=== PATIENT | female | born 1960 | race American Indian/Alaskan Native ===

== ENCOUNTER 2017-08-16 10:33 | Inpatient (IN) | payer BC ==
[2017-08-12 15:12] VITALS: BMI 22.1
[2017-08-16] MEDS ORDERED: Iohexol 240 (50 ml) ONE ×2 (12:58→14:58)
[2017-08-16] MEDS ORDERED: Lidocaine 2% Jelly (Uro-Jet) ONE (12:58)
[2017-08-16] MEDS ORDERED: cefTRIAXone (Rocephin) 1 gm Inj ONE (12:58)
[2017-08-16] MEDS ORDERED: Propofol 10 mg/ml Inj (20 ML) ONE (14:05)
[2017-08-16] MEDS ORDERED: Midazolam 2 MG/2 ML VIAL ONE (14:06)
[2017-08-16] MEDS ORDERED: Lidocaine 2% Inj (20ml) ONE (14:07)
[2017-08-16] MEDS ORDERED: Gentamicin 80 mg/2mL Inj. ONE (15:05)
[2017-08-16] MEDS ORDERED: Morphine 4 mg/ml ISec IVP PRN (15:26)
[2017-08-16] MEDS ORDERED: Lactated Ringer's 1,000 ML IV SCH (15:30)
[2017-08-16] MEDS ORDERED: Morphine 4 mg/ml ISec ONE ×2 (16:09→16:26)
[2017-08-16] MEDS ORDERED: Morphine 4 mg/ml ISec IVP ONE ×3 (16:15→16:44)
[2017-08-16] MEDS ORDERED: Oxycodone/Acetaminophen 5/325 mg Tab ONE (16:47)
[2017-08-16] MEDS ORDERED: Oxycodone/Acetaminophen 5/325 mg Tab PO ONE (16:51)
--- NOTE | 2017-08-16 18:11 | RAD ---
PROCEDURE: Fluoroscopy up to 1 hr. HISTORY: LASER LITHOTRIPSY / STENT INSERTION (LEFT) COMPARISON: None TECHNIQUE: Standard protocol for this study/examination. FINDINGS: Total fluoroscopic time (continuous mode) utilized during the procedure 380.5 (seconds). Total exam DLP: (mGy) 3.24 IMPRESSION: Less than 1 hr fluoroscopic time utilized during performance of the procedure.
[2017-08-16 18:27] LABS: HEMOGLOBIN 11.9 g/dL (12.0-16.0); MEAN CELL VOLUME 86.7 fl (80.0-105.0); MEAN CORPUSCULAR HEMOGLOBIN 28.9 pg (25.0-35.0); MEAN CORPUSCULAR HGB CONC 33.3 g/dl (31.0-37.0); MEAN PLATELET VOLUME 9.8 fl (7.0-11.0); RBC 4.12 10^6/uL (3.5-6.1); RED CELL DISTRIBUTION WIDTH 13.7 % (11.5-14.5); WHITE BLOOD COUNT 12.1 10^3/ul (4.5-11.0)
[2017-08-16 18:30] LABS: ALB/GLOB RATIO 1.4 (1.1-1.8); ALBUMIN 4.1 g/dL (3.0-4.8); ALT/SGPT 28 U/L (7-56); AST/SGOT 27 U/L (14-36); BLOOD UREA NITROGEN 13 mg/dL (7-21); CALCIUM 8.7 mg/dL (8.4-10.5); GFR AFRICAN-AMERICAN > 60; GFR NON-AFRICAN AMERICAN > 60
--- NOTE | 2017-08-16 18:34 | CP.PCM.CON ---
<Ramya Hayes - Last Filed: 08/16/17 19:40> History of Present Illness - History of Present Illness History of Present Illness: PGY-[address] Elias Medical Consult: weakness, vomiting Ms Kumar, 57 F with PMHx HTN/HLD, R breast cancer in remission, comes in for elective surgery with Dr. Sanchez due to L hydronephrosis due to a very large calculus at mid left ureter with chronic obstruction. Today she underwent ureteroscopy with holmium laser lithrotripsy and cystoscopy with pigtail stent L. In PACU, pt ate muffin and drank 1 cup of coffee. She was seen ambulating in PACU and going to bathroom twice. RN found pt kneeling on the floor with clunched fists on her chest. Pt was assisted to the stretcher. Pt did not lose consciousness. Pt felt generalized weakness due to the pain and she had to gesture with clunched fists for the severe pain in L side of her back. Rapid response was called at 17:40 for clunched fists to r/o seizure ROS: (+) nausea/vomit (+) pain urination (+) frequency in urination, (+) L back pain Denies CARD, dizziness, CP, SOB, abdominal pain, constipation, diarrhea, joint pain PMH: HTN/HLD, anxiety, R breast cancer 2016 s/p R mastectomy/radiation/chemo, gout PSH: port-a-cath; mastectomy SH: Denies drink/smoke/drug All: NKDA Med: called [facility] pharm to confirm. See JUN PMD: No Outpatient oncologist: Dr Mary Past Patient History - Past Social History Smoking Status: Never Smoked - CARDIAC Hx Pacemaker: No - NEUROLOGICAL Hx Paralysis: No - HEMATOLOGICAL/ONCOLOGICAL Hx Blood Transfusions: No - MUSCULOSKELETAL/RHEUMATOLOGICAL Hx Musculoskeletal Disorders: No - PSYCHIATRIC Hx Emotional Abuse: No Hx Physical Abuse: No Hx Substance Use: No - SURGICAL HISTORY Hx Surgeries: Yes - ANESTHESIA Hx Anesthesia Reactions: No Hx Malignant Hyperthermia: No Meds Allergies/Adverse Reactions: Allergies Allergy/AdvReac Type Severity Reaction Status Date / Time No Known Allergies Allergy Verified 07/24/15 08:52 - Medications Medications: Current Medications Alprazolam (Xanax) 0.25 mg PO BID [facility] PRN Reason: Protocol Stop: 08/23/17 18:31 Amlodipine Besylate (Norvasc) 5 mg PO QAM [facility] [place] Levofloxacin/Dextrose (Levaquin 500mg) 500 mg in 100 mls @ 100 mls/hr IVPB DAILY [facility] PRN Reason: Protocol Stop: 08/22/17 10:01 Morphine Sulfate (Morphine) 1 mg IVP Q3 PRN PRN Reason: Pain, moderate (4-7) Non-Formulary Medication (Simvastatin [Zocor]) 40 mg PO HS [facility] Ondansetron HCl (Zofran Inj) 4 mg IVP Q6H PRN PRN Reason: Nausea/Vomiting Last Admin: 08/16/17 18:00 Dose: 4 mg Oxycodone/Acetaminophen (Percocet 5/325 Mg Tab) 1 tab PO Q6H PRN PRN Reason: Bladder Spasm Stop: 08/19/17 14:18 Physical Exam - Constitutional Appears: No Acute Distress - Head Exam Head Exam: ATRAUMATIC, NORMAL INSPECTION, NORMOCEPHALIC - Eye Exam Eye Exam: EOMI, Normal appearance, PERRL. absent: Scleral icterus Pupil Exam: NORMAL ACCOMODATION - ENT Exam ENT Exam: Mucous Membranes Moist - Neck Exam Additional comments: supple - Respiratory Exam Respiratory Exam: Clear to Auscultation Bilateral, NORMAL BREATHING PATTERN. absent: Rales, Rhonchi, Wheezes - Cardiovascular Exam Cardiovascular Exam: REGULAR RHYTHM, +S1, +S2 - GI/Abdominal Exam GI & Abdominal Exam: Normal Bowel Sounds, Soft. absent: Distended, Firm, Guarding - Extremities Exam Extremities exam: Positive for: pedal pulses present. Negative for: calf tenderness - Back Exam Additional comments: L back pain - Neurological Exam Neurological exam: Alert, CN II-XII Intact, Oriented x3 Additional comments: Normal speech Move all extremities equally No sensory deficit - Psychiatric Exam Psychiatric exam: Normal Affect, Normal Mood - Skin Skin Exam: Dry, Warm Results - Vital Signs Recent Vital Signs: Last Vital Signs Temp 98.3 F 08/16/17 17:15 Pulse 108 H 08/16/17 17:15 Resp 18 08/16/17 17:15 BP 119/61 08/16/17 17:15 Pulse Ox 97 08/16/17 17:15 - Labs Result Diagrams: 08/16/17 18:17 08/16/17 18:17 Labs: Laboratory Results - last 24 hr 08/16/17 17:44 POC Glucose (mg/dL) 136 H Assessment & Plan - Assessment and Plan (Free Text) Plan: A: Intractable nausea and vomiting likely side effect of anesthesia L back pain likely due to bladder spasm secondary to recent ureteroscopy with holmium laser lithrotripsy and cystoscopy with L pigtail stent Dysuria likely UTI Hx Anxiety Hx HTN/HLD P: Zofran PRN; NS@100 EKG: NSR 99 with QTc 464 Pyridium x 1; Percocet 1q6 for bladder spasm, Morphine 1q3 PRN for moderate pain Levofloxacin 500 IV daily x 5 days continue home xanax BID amlodipine 5mg AM Lipitor 20 HS SCD protonix IV x 1, protonix PO AM Clear liquid diet Plan to advance diet tomorrow. If tolerating diet, plan to d/c tomorrow s/r/d/w Dr. Elias <Kim Elias - Last Filed: 08/17/17 16:53> Meds - Medications Medications: Current Medications Alprazolam (Xanax) 0.25 mg PO BID [facility] PRN Reason: Protocol Stop: 08/23/17 18:31 Last Admin: 08/17/17 09:33 Dose: Not Given Amlodipine Besylate (Norvasc) 5 mg PO QAM [facility] [place] Last Admin: 08/17/17 09:29 Dose: 5 mg Atorvastatin Calcium (Lipitor) 20 mg PO HS [facility] Last Admin: 08/16/17 21:32 Dose: 20 mg Enoxaparin Sodium (Lovenox) 40 mg SC DAILY [facility] PRN Reason: Protocol Last Admin: 08/17/17 09:29 Dose: 40 mg Levofloxacin/Dextrose (Levaquin 500mg) 500 mg in 100 mls @ 100 mls/hr IVPB DAILY [facility] PRN Reason: Protocol Stop: 08/22/17 10:01 Last Admin: 08/17/17 09:29 Dose: 100 mls/hr Sodium Chloride (Sodium Chloride 0.9%) 1,000 mls @ 100 mls/hr IV .Q10H [facility] Morphine Sulfate (Morphine) 1 mg IVP Q3 PRN PRN Reason: Pain, moderate (4-7) Ondansetron HCl (Zofran Inj) 4 mg IVP Q6H PRN PRN Reason: Nausea/Vomiting Last Admin: 08/16/17 18:00 Dose: 4 mg Oxycodone/Acetaminophen (Percocet 5/325 Mg Tab) 1 tab PO Q6H PRN PRN Reason: Bladder Spasm Stop: 08/19/17 14:18 Last Admin: 08/17/17 04:03 Dose: 1 tab Pantoprazole Sodium (Protonix Ec Tab) 40 mg PO 0600 [facility] Last Admin: 08/17/17 06:04 Dose: 40 mg Results - Vital Signs Recent Vital Signs: Last Vital Signs Temp 98.7 F 08/17/17 14:00 Pulse 112 H 08/17/17 14:00 Resp 18 08/17/17 14:00 BP 122/77 08/17/17 14:00 Pulse Ox 98 08/17/17 14:00 - Labs Result Diagrams: 08/17/17 06:45 08/17/17 06:45 Labs: Laboratory Results - last 24 hr 08/16/17 08/16/17 08/16/17 17:44 18:17 18:17 WBC 12.1 H D RBC 4.12 Hgb 11.9 L Hct 35.7 L MCV 86.7 MCH 28.9 MCHC 33.3 RDW 13.7 Plt Count 229 MPV 9.8 Gran % Lymph % (Auto) [place] % (Auto) Eos % (Auto) Baso % (Auto) Gran # Lymph # (Auto) [place] # (Auto) Eos # (Auto) Baso # (Auto) Sodium 140 Potassium 3.3 L Chloride 101 Carbon Dioxide 27 Anion Gap 16 BUN 13 Creatinine 0.9 Est GFR ( Amer) > 60 Est GFR (Non-Af Amer) > 60 POC Glucose (mg/dL) 136 H Random Glucose 150 H Calcium 8.7 Phosphorus 3.3 Magnesium 1.6 L Total Bilirubin 0.4 AST 27 ALT 28 Alkaline Phosphatase 65 Total Protein 7.0 Albumin 4.1 Globulin 2.9 Albumin/Globulin Ratio 1.4 08/17/17 08/17/17 06:45 06:45 WBC 14.3 H RBC 4.21 Hgb 12.0 Hct 36.3 MCV 86.2 MCH 28.5 MCHC 33.1 RDW 13.9 Plt Count 212 MPV 9.1 Gran % 88.8 H Lymph % (Auto) 6.8 L [place] % (Auto) 4.3 Eos % (Auto) 0.0 L Baso % (Auto) 0.1 Gran # 12.69 H Lymph # (Auto) 1.0 L [place] # (Auto) 0.6 Eos # (Auto) 0.0 Baso # (Auto) 0.01 Sodium 138 Potassium 3.5 L Chloride 99 Carbon Dioxide 27 Anion Gap 15 BUN 18 Creatinine 0.9 Est GFR ( Amer) > 60 Est GFR (Non-Af Amer) > 60 POC Glucose (mg/dL) Random Glucose 152 H Calcium 8.6 Phosphorus Magnesium Total Bilirubin 0.6 AST 27 ALT 27 Alkaline Phosphatase 51 Total Protein 7.6 Albumin 4.5 Globulin 3.1 Albumin/Globulin Ratio 1.4 Attending/Attestation - Attestation I have personally seen and examined this patient.: Yes I have fully participated in the care of the patient.: Yes I have reviewed all pertinent clinical information: Yes Notes (Text): 08/17/17 16:47 Medical record note made by the resident after discussion with my direction and input after the patient was personally seen and examined by me. I have reviewed the chart and agree that the record accurately reflects by personal performance of the history, physical exam, data review, and medical decision-making, in the course for the patient. I have also personally directed the plan of care. 57 yrs old female with PMHx HTN/HLD, R breast cancer in remission, Nephrolithiasis comes in for elective surgery with Dr. Sanchez due to L hydronephrosis due to a very large calculus at mid left ureter with chronic obstruction.Patient is SP ureteroscopy with holmium laser lithrotripsy and cystoscopy with pigtail stent L. In PACU, pt ate muffin and drank 1 cup of coffee. She was seen ambulating in PACU and going to bathroom twice. RN found pt kneeling on the floor with clunched fists on her.Patient did not has any fall.There is H/O lose of consiousness.There is no h/o incontinence of urine or stool or tongue bite.Patient was back to her base line in 1-2 minutes.She is aware of all the events and tols that she was clnching as she was having pain.Patient Neuro examination is normal.There is no evidence of seizure.Patient is admitted for observation by Urology. Continue supportive treatment for Nausea and vomiting. Continue home anti hypertensive medication. We will follow up patient with Urology service
--- NOTE | 2017-08-16 21:19 | CARD ---
APPROVED REPORT EKG Measurement Heart [id number] DC [id number] <Conclusion> Normal sinus rhythm Prolonged QT Abnormal ECG
--- NOTE | 2017-08-16 21:27 | CARD ---
APPROVED REPORT EKG Measurement Heart [id number] MS [id number] <Conclusion> Normal sinus rhythm Normal ECG
[2017-08-16] MEDS: Oxycodone/Acetaminophen 5/325 mg Tab PO PRN (21:31)
[2017-08-16] MEDS ORDERED: Non Formulary Medication (Simvastatin [Zocor] 40 MG) PO SCH (22:00)
[2017-08-17] MEDS: Oxycodone/Acetaminophen 5/325 mg Tab PO PRN ×2 (04:03→18:03)
[2017-08-17] MEDS: Pantoprazole 40 mg EC Tab PO SCH (06:04)
[2017-08-17] MEDS ORDERED: Potassium Chloride 20 mEq ER Tab PO ONE (06:54)
[2017-08-17 07:14] LABS: BASO # 0.01 K/mm3 (0.0-2.0); BASO % 0.1 % (0.0-3.0); GRAN # 12.69 (1.4-6.5); GRAN % 88.8 % (50.0-68.0); LYMPH % 6.8 % (22.0-35.0); MEAN CELL VOLUME 86.2 fl (80.0-105.0); MEAN CORPUSCULAR HEMOGLOBIN 28.5 pg (25.0-35.0); MEAN CORPUSCULAR HGB CONC 33.1 g/dl (31.0-37.0); MEAN PLATELET VOLUME 9.1 fl (7.0-11.0); MONO # 0.6 (0.1-0.6); MONO % 4.3 % (1.0-6.0); RBC 4.21 10^6/uL (3.5-6.1); RED CELL DISTRIBUTION WIDTH 13.9 % (11.5-14.5); WHITE BLOOD COUNT 14.3 10^3/ul (4.5-11.0)
[2017-08-17 07:34] LABS: ALB/GLOB RATIO 1.4 (1.1-1.8); ALBUMIN 4.5 g/dL (3.0-4.8); ALT/SGPT 27 U/L (7-56); AST/SGOT 27 U/L (14-36); BLOOD UREA NITROGEN 18 mg/dL (7-21); CALCIUM 8.6 mg/dL (8.4-10.5); GFR AFRICAN-AMERICAN > 60; GFR NON-AFRICAN AMERICAN > 60
[2017-08-17] MEDS: levoFLOXacin 500 mg in D5W 500 MG/100 ML BAG IVPB SCH (09:29)
[2017-08-17] MEDS ORDERED: Enoxaparin 40 mg Syringe SC SCH (10:00)
--- NOTE | 2017-08-17 11:49 | RAD ---
HISTORY: Urolithiasis. COMPARISON: Correlation made with prior PET-CT scan 08/02/2017 FINDINGS: Interval placement left ureteral stent. Elliptical shaped calcification measuring approximately 16 mm x 11 mm adjacent to the superolateral border of the proximal pigtail - coil component of the ureteral stent. . . This calculus likely represented calculus that was located in the proximal left ureter (seen on prior PET-CT scan) which has been pushed back into the left renal collecting system during placement of the ureteral stent. BOWEL: Nonspecific bowel gas pattern. BONES: Normal. OTHER FINDINGS: None. IMPRESSION: In situ left ureteral stent. Previously noted large calculus that was seen in the proximal left ureter presumably has been pushed back up into the collecting system as above.
--- NOTE | 2017-08-17 13:49 | CP.PCM.PN ---
<Emerson Ortega - Last Filed: 08/17/17 13:42> Subjective - Date & Time of Evaluation Date of Evaluation: 08/17/17 Time of Evaluation: 13:42 - Subjective Subjective: Patient seen and evaluated overnight. Patient overnight required straight cath for evacuation of urine. Patient voiding appropriately at this time. No complaints otherwise. Objective - Vital Signs/Intake and Output Vital Signs (last 24 hours): Temp Pulse Resp BP Pulse Ox 98.8 F 107 H 18 131/72 97 08/17/17 09:06 08/17/17 09:06 08/17/17 09:06 08/17/17 09:29 08/17/17 09:06 Intake and Output: 08/17/17 08/17/17 06:59 18:59 Intake Total 600 Output Total 1300 Balance -700 - Medications Medications: Current Medications Alprazolam (Xanax) 0.25 mg PO BID [facility] PRN Reason: Protocol Stop: 08/23/17 18:31 Last Admin: 08/17/17 09:33 Dose: Not Given Amlodipine Besylate (Norvasc) 5 mg PO QAM [facility] Last Admin: 08/17/17 09:29 Dose: 5 mg Atorvastatin Calcium (Lipitor) 20 mg PO HS [facility] Last Admin: 08/16/17 21:32 Dose: 20 mg Enoxaparin Sodium (Lovenox) 40 mg SC DAILY [facility] PRN Reason: Protocol Last Admin: 08/17/17 09:29 Dose: 40 mg Levofloxacin/Dextrose (Levaquin 500mg) 500 mg in 100 mls @ 100 mls/hr IVPB DAILY [facility] PRN Reason: Protocol Stop: 08/22/17 10:01 Last Admin: 08/17/17 09:29 Dose: 100 mls/hr Sodium Chloride (Sodium Chloride 0.9%) 1,000 mls @ 100 mls/hr IV .Q10H [facility] Morphine Sulfate (Morphine) 1 mg IVP Q3 PRN PRN Reason: Pain, moderate (4-7) Ondansetron HCl (Zofran Inj) 4 mg IVP Q6H PRN PRN Reason: Nausea/Vomiting Last Admin: 08/16/17 18:00 Dose: 4 mg Oxycodone/Acetaminophen (Percocet 5/325 Mg Tab) 1 tab PO Q6H PRN PRN Reason: Bladder Spasm Stop: 08/19/17 14:18 Last Admin: 08/17/17 04:03 Dose: 1 tab Pantoprazole Sodium (Protonix Ec Tab) 40 mg PO 0600 [facility] Last Admin: 08/17/17 06:04 Dose: 40 mg - Labs Labs: 08/17/17 06:45 08/17/17 06:45 - Head Exam Head Exam: ATRAUMATIC, NORMAL INSPECTION, NORMOCEPHALIC - Eye Exam Eye Exam: EOMI, PERRL - Respiratory Exam Respiratory Exam: Clear to Ausculation Bilateral, NORMAL BREATHING PATTERN. absent: Wheezes - Cardiovascular Exam Cardiovascular Exam: REGULAR RHYTHM, +S1, +S2 - GI/Abdominal Exam GI & Abdominal Exam: Soft, Tenderness (mild left lower quadrant ), Normal Bowel Sounds - Back Exam Back Exam: NORMAL INSPECTION. absent: paraspinal tenderness - Neurological Exam Neurological Exam: Alert, Awake, Oriented x3 - Psychiatric Exam Psychiatric exam: Normal Affect, Normal Mood - Skin Skin Exam: Dry, Warm Assessment and Plan - Assessment and Plan (Free Text) Assessment: Patient is a 57 year old female who was admitted for intractable nausea and vomiting likely side effect of anesthesia L back pain likely due to bladder spasm secondary to recent ureteroscopy with holmium laser lithrotripsy and cystoscopy with L pigtail stent. Patient admitted by Dr. Sanchez. Plan: Bladder spasm s/p urethral stenting with Dr. Sanchez - Levofloxacin - Pyridium - Percocet 1q6H - Monitor clinically HLD - Lipitor 20mg HTN - Monitor clinically - Stable - Amlodipine DVT: Lovenox GI: protonix Dispo: Patient is medically cleared for outpatient follow up, please reach out for further questions Case and plan discussed with attending <Kim Elias - Last Filed: 08/17/17 16:53> Objective - Vital Signs/Intake and Output Vital Signs (last 24 hours): Temp Pulse Resp BP Pulse Ox 98.7 F 112 H 18 122/77 98 08/17/17 14:00 08/17/17 14:00 08/17/17 14:00 08/17/17 14:00 08/17/17 14:00 Intake and Output: 08/17/17 08/17/17 06:59 18:59 Intake Total 600 8840 Output Total 1300 300 Balance -700 8540 - Medications Medications: Current Medications Alprazolam (Xanax) 0.25 mg PO BID [facility] PRN Reason: Protocol Stop: 08/23/17 18:31 Last Admin: 08/17/17 09:33 Dose: Not Given Amlodipine Besylate (Norvasc) 5 mg PO QAM [facility] Last Admin: 08/17/17 09:29 Dose: 5 mg Atorvastatin Calcium (Lipitor) 20 mg PO HS [facility] Last Admin: 08/16/17 21:32 Dose: 20 mg Enoxaparin Sodium (Lovenox) 40 mg SC DAILY [facility] PRN Reason: Protocol Last Admin: 08/17/17 09:29 Dose: 40 mg Levofloxacin/Dextrose (Levaquin 500mg) 500 mg in 100 mls @ 100 mls/hr IVPB DAILY [facility] PRN Reason: Protocol Stop: 08/22/17 10:01 Last Admin: 08/17/17 09:29 Dose: 100 mls/hr Sodium Chloride (Sodium Chloride 0.9%) 1,000 mls @ 100 mls/hr IV .Q10H [facility] Morphine Sulfate (Morphine) 1 mg IVP Q3 PRN PRN Reason: Pain, moderate (4-7) Ondansetron HCl (Zofran Inj) 4 mg IVP Q6H PRN PRN Reason: Nausea/Vomiting Last Admin: 08/16/17 18:00 Dose: 4 mg Oxycodone/Acetaminophen (Percocet 5/325 Mg Tab) 1 tab PO Q6H PRN PRN Reason: Bladder Spasm Stop: 08/19/17 14:18 Last Admin: 08/17/17 04:03 Dose: 1 tab Pantoprazole Sodium (Protonix Ec Tab) 40 mg PO 0600 [facility] Last Admin: 08/17/17 06:04 Dose: 40 mg - Labs Labs: 08/17/17 06:45 08/17/17 06:45 Attending/Attestation - Attestation I have personally seen and examined this patient.: Yes I have fully participated in the care of the patient.: Yes I have reviewed all pertinent clinical information, including history, physical exam and plan: Yes Notes (Text): 08/17/17 16:53 Medical record note made by the resident after discussion with my direction and input after the patient was personally seen and examined by me. I have reviewed the chart and agree that the record accurately reflects by personal performance of the history, physical exam, data review, and medical decision-making, in the course for the patient. I have also personally directed the plan of care.
--- NOTE | 2017-08-17 14:24 | CP.PCM.CON ---
History of Present Illness - History of Present Illness History of Present Illness: PGY-[address] Mary 57 F with PMH of HTN, hyperlipidemia, Right breast cancer in remission, comes in for elective surgery with Dr. Sanchez due to L hydronephrosis due to a very large calculus at mid left ureter with chronic obstruction. She underwent ureteroscopy with holmium laser lithrotripsy and cystoscopy with pigtail stent. In PACU, She was seen ambulating in PACU and going to bathroom twice. RN found pt kneeling on the floor with clutched fists on her chest. Pt was assisted to the stretcher. Pt felt generalized weakness due to the pain and she had to gesture with clutched fists for the severe pain in L side of her back. Rapid response was called. Patients states that she was having pain 10/10 greater on the left side. She states that she felt that she had to urinate but could not. Overnight patient had dominguez placed and drained about 1500cc. This morning patient states that madhuri pain is much better and she is able to make urine however she reports hematuria. She denies fever, chill, chest pain, sob, n/v abd pain, headache, dizziness. PMH: HTN, hyperlipidemia, anxiety, R breast cancer 2016 s/p R mastectomy/ radiation/chemo, gout PSH: port-a-cath; mastectomy Social History : Denies alcohol use, smoke, illict drug use Allergy: NKDA Review of Systems - Review of Systems All systems: reviewed and no additional remarkable complaints except Past Patient History - Past Social History Smoking Status: Never Smoked - CARDIAC Hx Cardiac Disorders: No - PULMONARY Hx Respiratory Disorders: No - NEUROLOGICAL Hx Neurological Disorder: No - HEENT Hx HEENT Problems: No - RENAL Hx Kidney Stones: Yes - ENDOCRINE/METABOLIC Hx Endocrine Disorders: No - HEMATOLOGICAL/ONCOLOGICAL Hx Blood Disorders: No - INTEGUMENTARY Hx Dermatological Problems: No - MUSCULOSKELETAL/RHEUMATOLOGICAL Hx Musculoskeletal Disorders: No Hx Falls: No - GASTROINTESTINAL Hx Gastrointestinal Disorders: No - GENITOURINARY/GYNECOLOGICAL Hx Genitourinary Disorders: Yes Hx Urinary Tract Infection: Yes - PSYCHIATRIC Hx Psychophysiologic Disorder: No Hx Substance Use: No - SURGICAL HISTORY Hx Surgeries: Yes Hx Mastectomy: Yes - ANESTHESIA Hx Anesthesia Reactions: No Hx Malignant Hyperthermia: No Meds Allergies/Adverse Reactions: Allergies Allergy/AdvReac Type Severity Reaction Status Date / Time No Known Allergies Allergy Verified 07/24/15 08:52 - Medications Medications: Current Medications Alprazolam (Xanax) 0.25 mg PO BID [facility] PRN Reason: Protocol Stop: 08/23/17 18:31 Last Admin: 08/17/17 09:33 Dose: Not Given Amlodipine Besylate (Norvasc) 5 mg PO QAM [facility] Last Admin: 08/17/17 09:29 Dose: 5 mg Atorvastatin Calcium (Lipitor) 20 mg PO HS [facility] Last Admin: 08/16/17 21:32 Dose: 20 mg Enoxaparin Sodium (Lovenox) 40 mg SC DAILY [facility] PRN Reason: Protocol Last Admin: 08/17/17 09:29 Dose: 40 mg Levofloxacin/Dextrose (Levaquin 500mg) 500 mg in 100 mls @ 100 mls/hr IVPB DAILY [facility] PRN Reason: Protocol Stop: 08/22/17 10:01 Last Admin: 08/17/17 09:29 Dose: 100 mls/hr Sodium Chloride (Sodium Chloride 0.9%) 1,000 mls @ 100 mls/hr IV .Q10H [facility] Morphine Sulfate (Morphine) 1 mg IVP Q3 PRN PRN Reason: Pain, moderate (4-7) Ondansetron HCl (Zofran Inj) 4 mg IVP Q6H PRN PRN Reason: Nausea/Vomiting Last Admin: 08/16/17 18:00 Dose: 4 mg Oxycodone/Acetaminophen (Percocet 5/325 Mg Tab) 1 tab PO Q6H PRN PRN Reason: Bladder Spasm Stop: 08/19/17 14:18 Last Admin: 08/17/17 04:03 Dose: 1 tab Pantoprazole Sodium (Protonix Ec Tab) 40 mg PO 0600 [facility] Last Admin: 08/17/17 06:04 Dose: 40 mg Physical Exam - Constitutional Appears: No Acute Distress - Head Exam Head Exam: ATRAUMATIC, NORMOCEPHALIC - Eye Exam Eye Exam: Normal appearance - ENT Exam ENT Exam: Mucous Membranes Moist - Respiratory Exam Respiratory Exam: Clear to Auscultation Bilateral, NORMAL BREATHING PATTERN. absent: Rhonchi, Wheezes, Respiratory Distress - Cardiovascular Exam Cardiovascular Exam: REGULAR RHYTHM, +S1, +S2. absent: Bradycardia, Tachycardia , Diastolic murmur, Systolic Murmur - GI/Abdominal Exam GI & Abdominal Exam: Normal Bowel Sounds, Soft, Tenderness (L>R). absent: Distended, Firm - Extremities Exam Extremities exam: Positive for: normal inspection. Negative for: pedal edema, tenderness - Neurological Exam Neurological exam: Alert, Oriented x3 - Psychiatric Exam Psychiatric exam: Normal Affect, Normal Mood - Skin Skin Exam: Dry, Intact, Normal Color, Warm Results - Vital Signs Recent Vital Signs: Last Vital Signs Temp 98.8 F 08/17/17 09:06 Pulse 107 H 08/17/17 09:06 Resp 18 08/17/17 09:06 BP 131/72 08/17/17 09:29 Pulse Ox 97 08/17/17 09:06 - Labs Result Diagrams: 08/17/17 06:45 08/17/17 06:45 Labs: Laboratory Results - last 24 hr 08/16/17 08/16/17 08/16/17 17:44 18:17 18:17 WBC 12.1 H D RBC 4.12 Hgb 11.9 L Hct 35.7 L MCV 86.7 MCH 28.9 MCHC 33.3 RDW 13.7 Plt Count 229 MPV 9.8 Gran % Lymph % (Auto) [place] % (Auto) Eos % (Auto) Baso % (Auto) Gran # Lymph # (Auto) [place] # (Auto) Eos # (Auto) Baso # (Auto) Sodium 140 Potassium 3.3 L Chloride 101 Carbon Dioxide 27 Anion Gap 16 BUN 13 Creatinine 0.9 Est GFR ( Amer) > 60 Est GFR (Non-Af Amer) > 60 POC Glucose (mg/dL) 136 H Random Glucose 150 H Calcium 8.7 Phosphorus 3.3 Magnesium 1.6 L Total Bilirubin 0.4 AST 27 ALT 28 Alkaline Phosphatase 65 Total Protein 7.0 Albumin 4.1 Globulin 2.9 Albumin/Globulin Ratio 1.4 08/17/17 08/17/17 06:45 06:45 WBC 14.3 H RBC 4.21 Hgb 12.0 Hct 36.3 MCV 86.2 MCH 28.5 MCHC 33.1 RDW 13.9 Plt Count 212 MPV 9.1 Gran % 88.8 H Lymph % (Auto) 6.8 L [place] % (Auto) 4.3 Eos % (Auto) 0.0 L Baso % (Auto) 0.1 Gran # 12.69 H Lymph # (Auto) 1.0 L [place] # (Auto) 0.6 Eos # (Auto) 0.0 Baso # (Auto) 0.01 Sodium 138 Potassium 3.5 L Chloride 99 Carbon Dioxide 27 Anion Gap 15 BUN 18 Creatinine 0.9 Est GFR ( Amer) > 60 Est GFR (Non-Af Amer) > 60 POC Glucose (mg/dL) Random Glucose 152 H Calcium 8.6 Phosphorus Magnesium Total Bilirubin 0.6 AST 27 ALT 27 Alkaline Phosphatase 51 Total Protein 7.6 Albumin 4.5 Globulin 3.1 Albumin/Globulin Ratio 1.4 Assessment & Plan - Assessment and Plan (Free Text) Assessment: 57 F with PMH of HTN, hyperlipidemia, Right breast cancer in remission, 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 Dysuria with hematuria Anxiety HTN Plan: hematuria and pain possibly secondary to procedure abd xray showed insitu Left ureteral stent NS@100 EKG: NSR 99 with QTc 464 continue pain management continue antibiotics per primary patient will need real scan once improved to evaluate kidney function patient will also need outpatient MRI fo dorsal spine continue home medications xanax, amlodipine,Lipitor case reviewed and discussed with Dr. Mary
[2017-08-17] MEDS: Morphine 4 mg/ml ISec IVP PRN (21:27)
[2017-08-17] MEDS ORDERED: Oxycodone/Acetaminophen 5/325 mg Tab PO STA (22:41)
[2017-08-18] MEDS: Oxycodone/Acetaminophen 5/325 mg Tab PO PRN ×2 (04:03→22:30)
[2017-08-18 07:43] LABS: BASO # 0.02 K/mm3 (0.0-2.0); BASO % 0.2 % (0.0-3.0); GRAN # 7.46 (1.4-6.5); GRAN % 76.9 % (50.0-68.0); HEMOGLOBIN 10.1 g/dL (12.0-16.0); LYMPH # 1.4 (1.2-3.4); LYMPH % 14.5 % (22.0-35.0); MEAN CELL VOLUME 86.1 fl (80.0-105.0); MEAN CORPUSCULAR HEMOGLOBIN 28.6 pg (25.0-35.0); MEAN CORPUSCULAR HGB CONC 33.2 g/dl (31.0-37.0); MONO # 0.8 (0.1-0.6); MONO % 8.4 % (1.0-6.0); RBC 3.53 10^6/uL (3.5-6.1); RED CELL DISTRIBUTION WIDTH 13.9 % (11.5-14.5); WHITE BLOOD COUNT 9.7 10^3/ul (4.5-11.0)
[2017-08-18 08:02] LABS: ALB/GLOB RATIO 1.3 (1.1-1.8); ALBUMIN 3.6 g/dL (3.0-4.8); ALT/SGPT 26 U/L (7-56); AST/SGOT 24 U/L (14-36); BLOOD UREA NITROGEN 9 mg/dL (7-21); CALCIUM 8.7 mg/dL (8.4-10.5); GFR AFRICAN-AMERICAN > 60; GFR NON-AFRICAN AMERICAN > 60
[2017-08-18] MEDS ORDERED: Potassium Chloride 20 mEq ER Tab PO STA (08:43)
--- NOTE | 2017-08-18 09:28 | CP.PCM.PN ---
Subjective - Date & Time of Evaluation Date of Evaluation: 08/18/17 Time of Evaluation: 07:00 - Subjective Subjective: PGY-2 Heme/onc progress note for Dr. Mary's service Patient seen and examined at bedside. Overnight patient states that she is in pain, especially when she urinates. The pain is 101/10 when urinating and 8/10 at rest. Her pain is located on her left back. She continues to report hematuria. She is tolerating diet, but reports a decrease in appetite. She denies chest pain, fever, chills, abd pain, n/v. Objective - Vital Signs/Intake and Output Vital Signs (last 24 hours): Temp Pulse Resp BP Pulse Ox 99.2 F 106 H 18 118/61 96 08/18/17 06:00 08/18/17 06:00 08/18/17 06:00 08/18/17 06:00 08/18/17 06:00 Intake and Output: 08/18/17 08/18/17 06:59 18:59 Intake Total 720 Output Total 975 Balance -255 - Medications Medications: Current Medications Alprazolam (Xanax) 0.25 mg PO BID [facility] PRN Reason: Protocol Stop: 08/23/17 18:31 Last Admin: 08/17/17 17:58 Dose: Not Given Amlodipine Besylate (Norvasc) 5 mg PO QAM [facility] Last Admin: 08/17/17 09:29 Dose: 5 mg Atorvastatin Calcium (Lipitor) 20 mg PO HS [facility] Last Admin: 08/17/17 21:27 Dose: 20 mg Levofloxacin/Dextrose (Levaquin 500mg) 500 mg in 100 mls @ 100 mls/hr IVPB DAILY [facility] PRN Reason: Protocol Stop: 08/22/17 10:01 Last Admin: 08/17/17 09:29 Dose: 100 mls/hr Sodium Chloride (Sodium Chloride 0.9%) 1,000 mls @ 100 mls/hr IV .Q10H [facility] Morphine Sulfate (Morphine) 1 mg IVP Q3 PRN PRN Reason: Pain, moderate (4-7) Last Admin: 08/17/17 21:27 Dose: 1 mg Ondansetron HCl (Zofran Inj) 4 mg IVP Q6H PRN PRN Reason: Nausea/Vomiting Last Admin: 08/16/17 18:00 Dose: 4 mg Oxycodone/Acetaminophen (Percocet 5/325 Mg Tab) 1 tab PO Q6H PRN PRN Reason: Bladder Spasm Stop: 08/19/17 14:18 Last Admin: 08/18/17 04:03 Dose: 1 tab Pantoprazole Sodium (Protonix Ec Tab) 40 mg PO 0600 [facility] Last Admin: 08/17/17 06:04 Dose: 40 mg - Labs Labs: 08/18/17 07:00 08/18/17 07:00 - Constitutional Appears: No Acute Distress - Head Exam Head Exam: ATRAUMATIC, NORMOCEPHALIC - Eye Exam Eye Exam: Normal appearance - ENT Exam ENT Exam: Mucous Membranes Moist - Respiratory Exam Respiratory Exam: Clear to Ausculation Bilateral, NORMAL BREATHING PATTERN. absent: Decreased Breath Sounds, Rales, Rhonchi, Wheezes, Respiratory Distress - Cardiovascular Exam Cardiovascular Exam: REGULAR RHYTHM, +S1. absent: Bradycardia, Tachycardia, Murmur - GI/Abdominal Exam GI & Abdominal Exam: Soft, Normal Bowel Sounds. absent: Distended, Firm, Guarding, Tenderness - Back Exam Back Exam: CVA tenderness (L) - Neurological Exam Neurological Exam: Alert, Awake, Oriented x3 - Psychiatric Exam Psychiatric exam: Normal Affect, Normal Mood - Skin Skin Exam: Dry, Intact, Normal Color, Warm Assessment and Plan - Assessment and Plan (Free Text) Assessment: 57 F with PMH of HTN, hyperlipidemia, Right breast cancer in remission, comes in for elective surgery admitted s/p DIRECTOR SPEECH, patient presents with left sided back pain and urinary retention, currently with hematuria. Dysuria with hematuria Anxiety HTN Plan: hematuria and pain possibly secondary to procedure vs obstruction abd xray showed insitu Left urethral stent continue NS@100 EKG: NSR 99 with QTc 464 continue pain management with percocet will add levsin for smooth muscle spasm continue antibiotics per primary will order renal US to rule any obstruction as cause for pain patient will also need outpatient MRI fo dorsal spine continue home medications xanax, amlodipine,Lipitor case reviewed and discussed with Dr. Mary
[2017-08-18] MEDS: levoFLOXacin 500 mg in D5W 500 MG/100 ML BAG IVPB SCH (10:02)
[2017-08-18] MEDS: Sodium Chloride 0.9% 1,000 ML IV SCH (10:03)
[2017-08-18] MEDS: Pantoprazole 40 mg EC Tab PO SCH (10:04)
[2017-08-18 10:35] LABS: PH,URINE 6.5 (4.7-8.0); URINE BILIRUBIN NEGATIVE (NEGATIVE); URINE BLOOD LARGE (NEGATIVE); URINE GLUCOSE (UA) NEGATIVE (NEGATIVE); URINE LEUKOCYTE ESTERASE MODERATE Leu/uL (NEGATIVE); URINE PROTEIN 100 mg/dL (<30 mg/dL); URINE UROBILINOGEN 0.2 E.U./dL (<1 E.U./dL)
[2017-08-18] MEDS ORDERED: Hyoscyamine 0.125 mg SL Tab PO PRN (10:36)
[2017-08-18 10:39] LABS: URINE APPEARANCE TURBID (CLEAR); URINE COLOR RED (YELLOW)
[2017-08-18 10:42] LABS: URINE BACTERIA TRACE (NEG); URINE RBC TNTC /hpf (0-2); URINE WBC 15 - 20 /hpf (0-6)
[2017-08-18] MEDS ORDERED: Sodium Chloride 0.9% 1,000 ML IV STA (14:08)
--- NOTE | 2017-08-18 14:14 | CP.PCM.PN ---
<Emerson Ortega - Last Filed: 08/18/17 14:11> Subjective - Date & Time of Evaluation Date of Evaluation: 08/18/17 Time of Evaluation: 07:45 - Subjective Subjective: Patient seen and evaluated this AM. Patient was scheduled for dc yesterday evening. Patient continued to have difficulty with urinating. Straight cath preformed with evacuation of ~300cc of hematuria. Patient remained in hospital. Patient today reports with pain medication she is able to void without difficulty. Patient denies feeling febrile, abdominal discomfort, shortness of breath, chest pain, nausea, vomiting. Patient is requesting to go home. Objective - Vital Signs/Intake and Output Vital Signs (last 24 hours): Temp Pulse Resp BP Pulse Ox 99.2 F 106 H 18 118/61 96 08/18/17 06:00 08/18/17 06:00 08/18/17 06:00 08/18/17 06:00 08/18/17 06:00 Intake and Output: 08/18/17 08/18/17 06:59 18:59 Intake Total 720 Output Total 975 Balance -255 - Medications Medications: Current Medications Acetaminophen (Tylenol 325mg Tab) 650 mg PO Q6H PRN PRN Reason: Fever >100.4 F Alprazolam (Xanax) 0.25 mg PO BID [facility] PRN Reason: Protocol Stop: 08/23/17 18:31 Last Admin: 08/18/17 10:02 Dose: 0.25 mg Amlodipine Besylate (Norvasc) 5 mg PO QAM [facility] Last Admin: 08/18/17 10:02 Dose: 5 mg Atorvastatin Calcium (Lipitor) 20 mg PO HS [facility] Last Admin: 08/17/17 21:27 Dose: 20 mg Hyoscyamine (Levsin) 0.125 mg PO Q4H PRN PRN Reason: GI distress Sodium Chloride (Sodium Chloride 0.9%) 1,000 mls @ 100 mls/hr IV .Q10H [facility] Last Admin: 08/18/17 10:03 Dose: 100 mls/hr Sodium Chloride (Sodium Chloride 0.9%) 1,000 mls @ 999 mls/hr IV .Q1H1M [facility] Stop: 08/18/17 15:08 Piperacillin Sod/Tazobactam Sod (Zosyn 4.5 Gm In Ns 100ml) 4.5 gm in 100 mls @ 200 mls/hr IVPB Q6 [facility] PRN Reason: Protocol Stop: 08/19/17 00:29 Morphine Sulfate (Morphine) 1 mg IVP Q3 PRN PRN Reason: Pain, moderate (4-7) Last Admin: 08/17/17 21:27 Dose: 1 mg Ondansetron HCl (Zofran Inj) 4 mg IVP Q6H PRN PRN Reason: Nausea/Vomiting Last Admin: 08/16/17 18:00 Dose: 4 mg Oxycodone/Acetaminophen (Percocet 5/325 Mg Tab) 1 tab PO Q6H PRN PRN Reason: Bladder Spasm Stop: 08/19/17 14:18 Last Admin: 08/18/17 04:03 Dose: 1 tab Pantoprazole Sodium (Protonix Ec Tab) 40 mg PO 0600 [facility] Last Admin: 08/18/17 10:04 Dose: Not Given - Labs Labs: 08/18/17 07:00 08/18/17 07:00 - Constitutional Appears: No Acute Distress - Head Exam Head Exam: ATRAUMATIC, NORMAL INSPECTION, NORMOCEPHALIC - Eye Exam Eye Exam: EOMI, PERRL - ENT Exam ENT Exam: Mucous Membranes Moist - Respiratory Exam Respiratory Exam: Clear to Ausculation Bilateral, NORMAL BREATHING PATTERN. absent: Wheezes - Cardiovascular Exam Cardiovascular Exam: REGULAR RHYTHM, +S1, +S2 - GI/Abdominal Exam GI & Abdominal Exam: Soft, Tenderness (mild to palpation left sided), Normal Bowel Sounds - Extremities Exam Extremities Exam: Normal Inspection. absent: Calf Tenderness, Pedal Edema - Neurological Exam Neurological Exam: Alert, Awake, Normal Gait, Oriented x3 - Psychiatric Exam Psychiatric exam: Normal Affect, Normal Mood - Skin Skin Exam: Dry, Warm Assessment and Plan - Assessment and Plan (Free Text) Assessment: Patient is a 57 year old female who was admitted for intractable nausea and vomiting likely side effect of anesthesia L back pain likely due to bladder spasm secondary to recent ureteroscopy with holmium laser lithrotripsy and cystoscopy with L pigtail stent. Patient with hematuria and tachycardia. Will be planning on staying for continued monitoring and evaluation Plan: Bladder spasm s/p urethral stenting with Dr. Sanchez - Levofloxacin - Pyridium - Percocet 1q6H - Monitor clinically - continues to have hematuria will monitor, f/u recs from urology HLD - Lipitor 20mg HTN - Monitor clinically - Stable - Amlodipine Patient noted to be tachycardic - suspect possible infectious cause - afebrile according to records - blood culture, urine culture ordered - Lactic acid, f/u - zozyn and iv fluids DVT: Lovenox GI: protonix Case and plan discussed with attending <Kim Elias - Last Filed: 08/19/17 16:42> Objective - Vital Signs/Intake and Output Vital Signs (last 24 hours): Temp Pulse Resp BP Pulse Ox 98.1 F 109 H 18 133/80 100 08/19/17 14:00 08/19/17 14:00 08/19/17 14:00 08/19/17 14:00 08/19/17 14:00 Intake and Output: 08/19/17 08/19/17 06:59 18:59 Intake Total 960 Output Total 2675 Balance -1715 - Medications Medications: Current Medications Acetaminophen (Tylenol 325mg Tab) 650 mg PO Q6H PRN PRN Reason: Fever >100.4 F Last Admin: 08/19/17 07:44 Dose: 650 mg Alprazolam (Xanax) 0.25 mg PO BID [facility] PRN Reason: Protocol Stop: 08/23/17 18:31 Last Admin: 08/19/17 10:23 Dose: 0.25 mg Amlodipine Besylate (Norvasc) 5 mg PO QAM [facility] Last Admin: 08/19/17 10:22 Dose: 5 mg Atorvastatin Calcium (Lipitor) 20 mg PO HS [facility] Last Admin: 08/18/17 22:31 Dose: 20 mg Hyoscyamine (Levsin) 0.125 mg PO Q4H PRN PRN Reason: GI distress Sodium Chloride (Sodium Chloride 0.9%) 1,000 mls @ 100 mls/hr IV .Q10H [facility] Last Admin: 08/19/17 07:44 Dose: 100 mls/hr Cefepime HCl (Maxipime 1gm) 1 gm in 100 mls @ 100 mls/hr IVPB Q12 [facility] PRN Reason: Protocol Last Admin: 08/19/17 10:21 Dose: 100 mls/hr Morphine Sulfate (Morphine) 1 mg IVP Q3 PRN PRN Reason: Pain, moderate (4-7) Last Admin: 08/17/17 21:27 Dose: 1 mg Ondansetron HCl (Zofran Inj) 4 mg IVP Q6H PRN PRN Reason: Nausea/Vomiting Last Admin: 08/16/17 18:00 Dose: 4 mg Pantoprazole Sodium (Protonix Ec Tab) 40 mg PO 0600 [facility] Last Admin: 08/19/17 07:45 Dose: Not Given - Labs Labs: 08/19/17 08:15 08/19/17 08:15 Attending/Attestation - Attestation I have personally seen and examined this patient.: Yes I have fully participated in the care of the patient.: Yes I have reviewed all pertinent clinical information, including history, physical exam and plan: Yes Notes (Text): 08/19/17 16:41 Medical record note made by the resident after discussion with my direction and input after the patient was personally seen and examined by me. I have reviewed the chart and agree that the record accurately reflects by personal performance of the history, physical exam, data review, and medical decision-making, in the course for the patient. I have also personally directed the plan of care. Patient had fever spine 102.8 F associated with tachycardia this afternoon.Sepsis work up has been sent, patient antibiotics has been changed to IV zosyn.We will hydrate patient and will also get ID evaluation. Management plan was discussed in detail with patient. Education was provided.
--- NOTE | 2017-08-18 16:28 | PCM.URO ---
Urology Progress Note - Objective Lab Studies: Reviewed Lab Results Last 24 Hours: Laboratory Results - last 24 hr 08/18/17 08/18/17 08/18/17 07:00 07:00 10:20 WBC 9.7 D RBC 3.53 Hgb 10.1 L Hct 30.4 L MCV 86.1 MCH 28.6 MCHC 33.2 RDW 13.9 Plt Count 174 MPV 9.0 Gran % 76.9 H Lymph % (Auto) 14.5 L [place] % (Auto) 8.4 H Eos % (Auto) 0.0 L Baso % (Auto) 0.2 Gran # 7.46 H Lymph # (Auto) 1.4 [place] # (Auto) 0.8 H Eos # (Auto) 0.0 Baso # (Auto) 0.02 Sodium 141 Potassium 3.3 L Chloride 104 Carbon Dioxide 27 Anion Gap 13 BUN 9 Creatinine 0.9 Est GFR ( Amer) > 60 Est GFR (Non-Af Amer) > 60 Random Glucose 112 H Calcium 8.7 Magnesium 1.8 Total Bilirubin 0.5 AST 24 ALT 26 Alkaline Phosphatase 44 Total Protein 6.4 Albumin 3.6 Globulin 2.8 Albumin/Globulin Ratio 1.3 Urine Color Red Urine Appearance Turbid Urine pH 6.5 Ur Specific [place] 1.010 Urine Protein 100 H Urine Glucose (UA) Negative Urine Ketones 15 H Urine Blood Large H Urine Nitrate Negative Urine Bilirubin Negative Urine Urobilinogen 0.2 Ur Leukocyte Esterase Moderate H Urine RBC Tntc Urine WBC 15 - 20 Urine Bacteria Trace Intake & Output: Intake & Output 08/17/17 08/18/17 08/18/17 18:59 06:59 18:59 Intake Total 8840 720 780 Output Total 300 975 900 Balance 8540 -255 -120 Weight 126 lb Intake: Oral 8840 720 780 Output: Urine 300 975 900 Urethral ([place]) 300 975 900 Other: # Voids Urethral ([place]) 5 # Bowel Movements 0 0 0 Vital Signs: Vital Signs - 24 hr 08/18/17 08/18/17 08/18/17 06:00 14:00 15:00 Temperature 99.2 F 102.8 F H 99.1 F Pulse Rate 106 H 137 H Respiratory 18 18 Rate Blood Pressure 118/61 121/65 O2 Sat by Pulse 96 98 Oximetry
[2017-08-18] MEDS ORDERED: Piperacill/Tazo 4.5gm in NS 4.5 GM/100 ML BAG IVPB SCH (18:00)
[2017-08-18] MEDS ORDERED: Magnesium Citrate Oral SOL (300 ml) PO ONE (18:05)
--- NOTE | 2017-08-18 18:43 | CP.PCM.CON ---
History of Present Illness - History of Present Illness History of Present Illness: Infectious Disease Consultation: August 18, 2018 57 yo [place] female with PMHx of HTN, hyperlipidemia, right breast cancer requiring mastectomy and radiation therapy with one episode of recurrence also treated presented for large calculus at mid left ureter with chronic obstruction. The patient was taken to OR by Dr. Sanchez for laser therapy to remove and break stone. Majority of the stone was removed. A smaller piece in the left kidney at this time. Had urinary retention as well. Developed fevers up to 102.8 F today. Overall she is feeling better but still with tenderness of the left mid back and flank regions. PMHx: HTN, hyperlipidemia, right breast cancer requiring mastectomy and radiation therapy PSHx: Right breast mastectomy Allergies: NKDA Social Hx: No tobacco, EtOH, or illicit drug use Active Medications Acetaminophen (Tylenol 325mg Tab) 650 mg PO Q6H PRN PRN Reason: Fever >100.4 F Last Admin: 08/18/17 14:00 Dose: 650 mg Alprazolam (Xanax) 0.25 mg PO BID [facility] PRN Reason: Protocol Stop: 08/23/17 18:31 Last Admin: 08/18/17 10:02 Dose: 0.25 mg Amlodipine Besylate (Norvasc) 5 mg PO QAM [facility] Last Admin: 08/18/17 10:02 Dose: 5 mg Atorvastatin Calcium (Lipitor) 20 mg PO HS [facility] Last Admin: 08/17/17 21:27 Dose: 20 mg Hyoscyamine (Levsin) 0.125 mg PO Q4H PRN PRN Reason: GI distress Sodium Chloride (Sodium Chloride 0.9%) 1,000 mls @ 100 mls/hr IV .Q10H [facility] Last Admin: 08/18/17 10:03 Dose: 100 mls/hr Piperacillin Sod/Tazobactam Sod (Zosyn 4.5 Gm In Ns 100ml) 4.5 gm in 100 mls @ 200 mls/hr IVPB Q6 [facility] PRN Reason: Protocol Stop: 08/19/17 00:29 Magnesium Citrate (Citrate Of Mag) 300 ml PO ONCE ONE Stop: 08/18/17 18:06 Morphine Sulfate (Morphine) 1 mg IVP Q3 PRN PRN Reason: Pain, moderate (4-7) Last Admin: 08/17/17 21:27 Dose: 1 mg Ondansetron HCl (Zofran Inj) 4 mg IVP Q6H PRN PRN Reason: Nausea/Vomiting Last Admin: 08/16/17 18:00 Dose: 4 mg Oxycodone/Acetaminophen (Percocet 5/325 Mg Tab) 1 tab PO Q6H PRN PRN Reason: Bladder Spasm Stop: 08/19/17 14:18 Last Admin: 08/18/17 04:03 Dose: 1 tab Pantoprazole Sodium (Protonix Ec Tab) 40 mg PO 0600 [facility] Last Admin: 08/18/17 10:04 Dose: Not Given Family Hx: none given ROS: Fevers, chills, left flank pain. No SOB, headaches, dizziness, chest pain, melena, hematuria, hematemesis, hematochezia, depression, anxiety, depression. Past Patient History - Past Social History Smoking Status: Never Smoked - CARDIAC Hx Cardiac Disorders: No - PULMONARY Hx Respiratory Disorders: No - NEUROLOGICAL Hx Neurological Disorder: No - HEENT Hx HEENT Problems: No - RENAL Hx Kidney Stones: Yes - ENDOCRINE/METABOLIC Hx Endocrine Disorders: No - HEMATOLOGICAL/ONCOLOGICAL Hx Blood Disorders: No - INTEGUMENTARY Hx Dermatological Problems: No - MUSCULOSKELETAL/RHEUMATOLOGICAL Hx Musculoskeletal Disorders: No Hx Falls: No - GASTROINTESTINAL Hx Gastrointestinal Disorders: No - GENITOURINARY/GYNECOLOGICAL Hx Genitourinary Disorders: Yes Hx Urinary Tract Infection: Yes - PSYCHIATRIC Hx Psychophysiologic Disorder: No Hx Substance Use: No - SURGICAL HISTORY Hx Surgeries: Yes Hx Mastectomy: Yes - ANESTHESIA Hx Anesthesia Reactions: No Hx Malignant Hyperthermia: No Meds Allergies/Adverse Reactions: Allergies Allergy/AdvReac Type Severity Reaction Status Date / Time No Known Allergies Allergy Verified 07/24/15 08:52 - Medications Medications: Current Medications Acetaminophen (Tylenol 325mg Tab) 650 mg PO Q6H PRN PRN Reason: Fever >100.4 F Last Admin: 08/18/17 14:00 Dose: 650 mg Alprazolam (Xanax) 0.25 mg PO BID [facility] PRN Reason: Protocol Stop: 08/23/17 18:31 Last Admin: 08/18/17 10:02 Dose: 0.25 mg Amlodipine Besylate (Norvasc) 5 mg PO QAM [facility] Last Admin: 08/18/17 10:02 Dose: 5 mg Atorvastatin Calcium (Lipitor) 20 mg PO HS [facility] Last Admin: 08/17/17 21:27 Dose: 20 mg Hyoscyamine (Levsin) 0.125 mg PO Q4H PRN PRN Reason: GI distress Sodium Chloride (Sodium Chloride 0.9%) 1,000 mls @ 100 mls/hr IV .Q10H [facility] Last Admin: 08/18/17 10:03 Dose: 100 mls/hr Piperacillin Sod/Tazobactam Sod (Zosyn 4.5 Gm In Ns 100ml) 4.5 gm in 100 mls @ 200 mls/hr IVPB Q6 [facility] PRN Reason: Protocol Stop: 08/19/17 00:29 Magnesium Citrate (Citrate Of Mag) 300 ml PO ONCE ONE Stop: 08/18/17 18:06 Morphine Sulfate (Morphine) 1 mg IVP Q3 PRN PRN Reason: Pain, moderate (4-7) Last Admin: 08/17/17 21:27 Dose: 1 mg Ondansetron HCl (Zofran Inj) 4 mg IVP Q6H PRN PRN Reason: Nausea/Vomiting Last Admin: 08/16/17 18:00 Dose: 4 mg Oxycodone/Acetaminophen (Percocet 5/325 Mg Tab) 1 tab PO Q6H PRN PRN Reason: Bladder Spasm Stop: 08/19/17 14:18 Last Admin: 08/18/17 04:03 Dose: 1 tab Pantoprazole Sodium (Protonix Ec Tab) 40 mg PO 0600 [facility] Last Admin: 08/18/17 10:04 Dose: Not Given Physical Exam - Constitutional Appears: Non-toxic, No Acute Distress, Chronically Ill - Head Exam Head Exam: ATRAUMATIC, NORMOCEPHALIC - Eye Exam Eye Exam: EOMI, PERRL Pupil Exam: NORMAL ACCOMODATION, PERRL - ENT Exam ENT Exam: Mucous Membranes Moist, Normal External Ear Exam, TM's Normal Bilaterally - Neck Exam Neck exam: Positive for: Full Rom, Normal Inspection - Respiratory Exam Respiratory Exam: Clear to Auscultation Bilateral, NORMAL BREATHING PATTERN. absent: Rales, Rhonchi, Wheezes - Cardiovascular Exam Cardiovascular Exam: REGULAR RHYTHM, RRR, +S1, +S2 - GI/Abdominal Exam Additional comments: left flank pain. - Extremities Exam Extremities exam: Positive for: full ROM, normal inspection - Neurological Exam Neurological exam: Alert, CN II-XII Intact, Normal Gait, Oriented x3 - Psychiatric Exam Psychiatric exam: Normal Affect, Normal Mood - Skin Skin Exam: Intact, Normal Color Results - Vital Signs Recent Vital Signs: Last Vital Signs Temp 99.1 F 08/18/17 15:00 Pulse 137 H 08/18/17 14:00 Resp 18 08/18/17 14:00 BP 121/65 08/18/17 14:00 Pulse Ox 98 08/18/17 14:00 - Labs Result Diagrams: 08/18/17 07:00 08/18/17 07:00 Labs: Laboratory Results - last 24 hr 08/18/17 08/18/17 08/18/17 07:00 07:00 10:20 WBC 9.7 D RBC 3.53 Hgb 10.1 L Hct 30.4 L MCV 86.1 MCH 28.6 MCHC 33.2 RDW 13.9 Plt Count 174 MPV 9.0 Gran % 76.9 H Lymph % (Auto) 14.5 L [place] % (Auto) 8.4 H Eos % (Auto) 0.0 L Baso % (Auto) 0.2 Gran # 7.46 H Lymph # (Auto) 1.4 [place] # (Auto) 0.8 H Eos # (Auto) 0.0 Baso # (Auto) 0.02 Sodium 141 Potassium 3.3 L Chloride 104 Carbon Dioxide 27 Anion Gap 13 BUN 9 Creatinine 0.9 Est GFR ( Amer) > 60 Est GFR (Non-Af Amer) > 60 Random Glucose 112 H Lactic Acid Calcium 8.7 Magnesium 1.8 Total Bilirubin 0.5 AST 24 ALT 26 Alkaline Phosphatase 44 Total Protein 6.4 Albumin 3.6 Globulin 2.8 Albumin/Globulin Ratio 1.3 Urine Color Red Urine Appearance Turbid Urine pH 6.5 Ur Specific [place] 1.010 Urine Protein 100 H Urine Glucose (UA) Negative Urine Ketones 15 H Urine Blood Large H Urine Nitrate Negative Urine Bilirubin Negative Urine Urobilinogen 0.2 Ur Leukocyte Esterase Moderate H Urine RBC Tntc Urine WBC 15 - 20 Urine Bacteria Trace 08/18/17 16:20 WBC RBC Hgb Hct MCV MCH MCHC RDW Plt Count MPV Gran % Lymph % (Auto) [place] % (Auto) Eos % (Auto) Baso % (Auto) Gran # Lymph # (Auto) [place] # (Auto) Eos # (Auto) Baso # (Auto) Sodium Potassium Chloride Carbon Dioxide Anion Gap BUN Creatinine Est GFR ( Amer) Est GFR (Non-Af Amer) Random Glucose Lactic Acid 0.7 Calcium Magnesium Total Bilirubin AST ALT Alkaline Phosphatase Total Protein Albumin Globulin Albumin/Globulin Ratio Urine Color Urine Appearance Urine pH Ur Specific [place] Urine Protein Urine Glucose (UA) Urine Ketones Urine Blood Urine Nitrate Urine Bilirubin Urine Urobilinogen Ur Leukocyte Esterase Urine RBC Urine WBC Urine Bacteria Assessment & Plan - Assessment and Plan (Free Text) Assessment: 57 yo [place] female with Breast Cancer treated with mastectomy and radiation therapy. Laser therapy for very large urethral stone. Patient with fevers up to 102.8 F in the past 24 hours. Start on Cefepime for antibiotic coverage. Odom cultures of blood and urine. Supportive care. Patient with good renal function and no leukocytosis at this time. Case discussed with Dr. Sanchez and Dr. Elias. Thank you for allowing me to participate in the care of the patient, we will follow with you.
--- NOTE | 2017-08-18 21:10 | CARD ---
APPROVED REPORT EKG Measurement Heart [id number] <Conclusion> Sinus tachycardia Nonspecific T wave abnormality Abnormal ECG
[2017-08-18] MEDS: Cefepime 1gm in NS 100ml 1 GM/100 ML BAG IVPB SCH (22:12)
[2017-08-19] MEDS: Sodium Chloride 0.9% 1,000 ML IV SCH ×2 (07:44→17:10)
[2017-08-19] MEDS: Pantoprazole 40 mg EC Tab PO SCH (07:45)
[2017-08-19 08:32] LABS: BASO # 0.03 K/mm3 (0.0-2.0); BASO % 0.3 % (0.0-3.0); EOS % 0.2 % (1.5-5.0); GRAN # 8.39 (1.4-6.5); GRAN % 78.3 % (50.0-68.0); HEMOGLOBIN 10.2 g/dL (12.0-16.0); LYMPH # 1.7 (1.2-3.4); LYMPH % 15.8 % (22.0-35.0); MEAN CELL VOLUME 85.5 fl (80.0-105.0); MEAN CORPUSCULAR HEMOGLOBIN 28.5 pg (25.0-35.0); MEAN CORPUSCULAR HGB CONC 33.3 g/dl (31.0-37.0); MEAN PLATELET VOLUME 8.9 fl (7.0-11.0); MONO # 0.6 (0.1-0.6); MONO % 5.4 % (1.0-6.0); RBC 3.58 10^6/uL (3.5-6.1); RED CELL DISTRIBUTION WIDTH 13.6 % (11.5-14.5); WHITE BLOOD COUNT 10.7 10^3/ul (4.5-11.0)
[2017-08-19 08:46] LABS: ALB/GLOB RATIO 1.2 (1.1-1.8); ALBUMIN 3.9 g/dL (3.0-4.8); ALT/SGPT 39 U/L (7-56); AST/SGOT 34 U/L (14-36); BLOOD UREA NITROGEN 5 mg/dL (7-21); CALCIUM 8.7 mg/dL (8.4-10.5); GFR AFRICAN-AMERICAN > 60; GFR NON-AFRICAN AMERICAN > 60
[2017-08-19] MEDS ORDERED: levoFLOXacin 500 MG TAB PO SCH (10:00)
[2017-08-19] MEDS: Cefepime 1gm in NS 100ml 1 GM/100 ML BAG IVPB SCH ×2 (10:21→21:14)
--- NOTE | 2017-08-19 12:21 | CP.PCM.PN ---
Subjective - Date & Time of Evaluation Date of Evaluation: 08/19/17 Time of Evaluation: 07:30 - Subjective Subjective: PGY-2 Heme/onc progress note for Dr. Mary's service Patient seen and examined at bedside. No acute distress. Patient states that her pain has improved and now a 5/10 located left cva. She continues to have discomfort when she urinated but greatly improved from yesterday. Yesterday evening patient had fever of 102.8, she received Tylenol. Her antibiotics were changed and ID was condulted. This morning patient states that she is doing better and would like to go home soon. She continues to report hematuria without clots. She is tolerating diet and reports normal appetite. She denies chest pain, fever, chills, abd pain, n/v. Objective - Vital Signs/Intake and Output Vital Signs (last 24 hours): Temp Pulse Resp BP Pulse Ox 98.4 F 113 H 18 116/70 97 08/19/17 08:44 08/19/17 06:00 08/19/17 06:00 08/19/17 06:00 08/19/17 06:00 Intake and Output: 08/19/17 08/19/17 06:59 18:59 Intake Total 960 Output Total 2675 Balance -1715 - Medications Medications: Current Medications Acetaminophen (Tylenol 325mg Tab) 650 mg PO Q6H PRN PRN Reason: Fever >100.4 F Last Admin: 08/19/17 07:44 Dose: 650 mg Alprazolam (Xanax) 0.25 mg PO BID [facility] PRN Reason: Protocol Stop: 08/23/17 18:31 Last Admin: 08/19/17 10:23 Dose: 0.25 mg Amlodipine Besylate (Norvasc) 5 mg PO QAM [facility] Last Admin: 08/19/17 10:22 Dose: 5 mg Atorvastatin Calcium (Lipitor) 20 mg PO HS [facility] Last Admin: 08/18/17 22:31 Dose: 20 mg Hyoscyamine (Levsin) 0.125 mg PO Q4H PRN PRN Reason: GI distress Sodium Chloride (Sodium Chloride 0.9%) 1,000 mls @ 100 mls/hr IV .Q10H [facility] Last Admin: 08/19/17 07:44 Dose: 100 mls/hr Cefepime HCl (Maxipime 1gm) 1 gm in 100 mls @ 100 mls/hr IVPB Q12 [facility] PRN Reason: Protocol Last Admin: 08/19/17 10:21 Dose: 100 mls/hr Morphine Sulfate (Morphine) 1 mg IVP Q3 PRN PRN Reason: Pain, moderate (4-7) Last Admin: 08/17/17 21:27 Dose: 1 mg Ondansetron HCl (Zofran Inj) 4 mg IVP Q6H PRN PRN Reason: Nausea/Vomiting Last Admin: 08/16/17 18:00 Dose: 4 mg Oxycodone/Acetaminophen (Percocet 5/325 Mg Tab) 1 tab PO Q6H PRN PRN Reason: Bladder Spasm Stop: 08/19/17 14:18 Last Admin: 08/18/17 22:30 Dose: 1 tab Pantoprazole Sodium (Protonix Ec Tab) 40 mg PO 0600 [facility] Last Admin: 08/19/17 07:45 Dose: Not Given - Labs Labs: 08/19/17 08:15 08/19/17 08:15 - Constitutional Appears: Well, No Acute Distress - Head Exam Head Exam: ATRAUMATIC, NORMOCEPHALIC - Eye Exam Eye Exam: EOMI, Normal appearance - Respiratory Exam Respiratory Exam: Clear to Ausculation Bilateral, NORMAL BREATHING PATTERN. absent: Decreased Breath Sounds, Rales, Rhonchi, Wheezes, Respiratory Distress - Cardiovascular Exam Cardiovascular Exam: REGULAR RHYTHM, +S1, +S2. absent: Bradycardia, Tachycardia , Murmur - GI/Abdominal Exam GI & Abdominal Exam: Soft, Normal Bowel Sounds. 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 Dysuria with hematuria Anxiety HTN Plan: hematuria and pain possibly secondary to procedure vs obstruction abd xray showed insitu Left urethral stent continue NS@100 EKG: NSR 99 with QTc 464 continue pain management with percocet and levsin for smooth muscle spasm patient had fever yesterday evening, antibiotics changed, urine and blood cultures pending ID consulted, continue antibiotics per ID renal US to rule any obstruction as cause for pain- pending offical read patient will also need outpatient MRI fo dorsal spine continue home medications xanax, amlodipine,Lipitor case reviewed and discussed with Dr. Mary
--- NOTE | 2017-08-19 13:59 | CP.PCM.PN ---
<Emerson Ortega - Last Filed: 08/20/17 10:12> Subjective - Date & Time of Evaluation Date of Evaluation: 08/19/17 Time of Evaluation: 13:57 - Subjective Subjective: Patient seen and examined this AM. No acute events overnight. Patient reports pain is controlled and without fever. Objective - Vital Signs/Intake and Output Vital Signs (last 24 hours): Temp Pulse Resp BP Pulse Ox 98.4 F 113 H 18 116/70 97 08/19/17 08:44 08/19/17 06:00 08/19/17 06:00 08/19/17 06:00 08/19/17 06:00 Intake and Output: 08/19/17 08/19/17 06:59 18:59 Intake Total 960 Output Total 2675 Balance -1715 - Medications Medications: Current Medications Acetaminophen (Tylenol 325mg Tab) 650 mg PO Q6H PRN PRN Reason: Fever >100.4 F Last Admin: 08/19/17 07:44 Dose: 650 mg Alprazolam (Xanax) 0.25 mg PO BID [facility] PRN Reason: Protocol Stop: 08/23/17 18:31 Last Admin: 08/19/17 10:23 Dose: 0.25 mg Amlodipine Besylate (Norvasc) 5 mg PO QAM [facility] Last Admin: 08/19/17 10:22 Dose: 5 mg Atorvastatin Calcium (Lipitor) 20 mg PO HS [facility] Last Admin: 08/18/17 22:31 Dose: 20 mg Hyoscyamine (Levsin) 0.125 mg PO Q4H PRN PRN Reason: GI distress Sodium Chloride (Sodium Chloride 0.9%) 1,000 mls @ 100 mls/hr IV .Q10H [facility] Last Admin: 08/19/17 07:44 Dose: 100 mls/hr Cefepime HCl (Maxipime 1gm) 1 gm in 100 mls @ 100 mls/hr IVPB Q12 [facility] PRN Reason: Protocol Last Admin: 08/19/17 10:21 Dose: 100 mls/hr Morphine Sulfate (Morphine) 1 mg IVP Q3 PRN PRN Reason: Pain, moderate (4-7) Last Admin: 08/17/17 21:27 Dose: 1 mg Ondansetron HCl (Zofran Inj) 4 mg IVP Q6H PRN PRN Reason: Nausea/Vomiting Last Admin: 08/16/17 18:00 Dose: 4 mg Oxycodone/Acetaminophen (Percocet 5/325 Mg Tab) 1 tab PO Q6H PRN PRN Reason: Bladder Spasm Stop: 08/19/17 14:18 Last Admin: 08/18/17 22:30 Dose: 1 tab Pantoprazole Sodium (Protonix Ec Tab) 40 mg PO 0600 [facility] Last Admin: 08/19/17 07:45 Dose: Not Given - Labs Labs: 08/19/17 08:15 08/19/17 08:15 - Head Exam Head Exam: ATRAUMATIC, NORMAL INSPECTION, NORMOCEPHALIC - Eye Exam Eye Exam: EOMI, PERRL - ENT Exam ENT Exam: Mucous Membranes Moist - Respiratory Exam Respiratory Exam: Clear to Ausculation Bilateral, NORMAL BREATHING PATTERN. absent: Rhonchi, Wheezes - Cardiovascular Exam Cardiovascular Exam: REGULAR RHYTHM, +S1, +S2 - GI/Abdominal Exam GI & Abdominal Exam: Soft, Tenderness (mild left sided, improved over past 24 hours), Normal Bowel Sounds - Extremities Exam Extremities Exam: Normal Inspection. absent: Calf Tenderness, Pedal Edema - Back Exam Back Exam: CVA tenderness (L) (mild with percussion). absent: CVA tenderness (R ) - Neurological Exam Neurological Exam: Alert, Awake, Normal Gait, Oriented x3 Additional comments: motor and sensory intact - Psychiatric Exam Psychiatric exam: Normal Affect, Normal Mood - Skin Skin Exam: Dry, Warm Assessment and Plan - Assessment and Plan (Free Text) Assessment: Patient is a 57 year old female who was admitted for intractable nausea and vomiting likely side effect of anesthesia L back pain likely due to bladder spasm secondary to recent ureteroscopy with holmium laser lithrotripsy and cystoscopy with L pigtail stent. Plan: Sepsis Details: - Meeting 2/4 SIRS criteria with suspected source of infection - Febrile 102, Tachycardia - Recent stenting with Dr. Sanchez - Afebrile past 24 hours, f/u sepsis work up Plan: - Bld clx negative - Urine clx - Lactic acid 0.7 - Once okay for discharge Kefllex outpatient with follow up with Dr. Sanchez outpatient Bladder spasm s/p urethral stenting with Dr. Sanchez - cefepime per ID - Pyridium - Percocet 1q6H - Monitor clinically - continues to have hematuria will monitor, f/u recs from urology HLD - Lipitor 20mg HTN - Monitor clinically - Stable - Amlodipine DVT: Lovenox GI: protonix Case and plan discussed with attending <Kim Elias - Last Filed: 08/20/17 11:25> Objective - Vital Signs/Intake and Output Vital Signs (last 24 hours): Temp Pulse Resp BP Pulse Ox 98.1 F 99 H 20 124/70 100 08/19/17 14:00 08/20/17 08:24 08/20/17 08:24 08/20/17 08:24 08/20/17 08:24 Intake and Output: 08/20/17 08/20/17 06:59 18:59 Intake Total 720 Output Total 2800 Balance -2080 - Medications Medications: Current Medications Acetaminophen (Tylenol 325mg Tab) 650 mg PO Q6H PRN PRN Reason: Fever >100.4 F Last Admin: 08/19/17 07:44 Dose: 650 mg Alprazolam (Xanax) 0.25 mg PO BID [facility] PRN Reason: Protocol Stop: 08/23/17 18:31 Last Admin: 08/20/17 10:03 Dose: Not Given Amlodipine Besylate (Norvasc) 5 mg PO QAM [facility] Last Admin: 08/20/17 10:06 Dose: Not Given Atorvastatin Calcium (Lipitor) 20 mg PO HS [facility] Last Admin: 08/19/17 21:15 Dose: 20 mg Hyoscyamine (Levsin) 0.125 mg PO Q4H PRN PRN Reason: GI distress Sodium Chloride (Sodium Chloride 0.9%) 1,000 mls @ 100 mls/hr IV .Q10H [facility] Last Admin: 08/20/17 05:08 Dose: Not Given Cefepime HCl (Maxipime 1gm) 1 gm in 100 mls @ 100 mls/hr IVPB Q12 [facility] PRN Reason: Protocol Last Admin: 08/20/17 10:06 Dose: Not Given Morphine Sulfate (Morphine) 1 mg IVP Q3 PRN PRN Reason: Pain, moderate (4-7) Last Admin: 08/19/17 21:15 Dose: 1 mg Ondansetron HCl (Zofran Inj) 4 mg IVP Q6H PRN PRN Reason: Nausea/Vomiting Last Admin: 08/16/17 18:00 Dose: 4 mg Pantoprazole Sodium (Protonix Ec Tab) 40 mg PO 0600 [facility] Last Admin: 08/20/17 05:08 Dose: Not Given - Labs Labs: 08/19/17 08:15 08/19/17 08:15 Attending/Attestation - Attestation I have personally seen and examined this patient.: Yes I have fully participated in the care of the patient.: Yes I have reviewed all pertinent clinical information, including history, physical exam and plan: Yes Notes (Text): 08/20/17 11:24 Medical record note made by the resident after discussion with my direction and input after the patient was personally seen and examined by me. I have reviewed the chart and agree that the record accurately reflects by personal performance of the history, physical exam, data review, and medical decision-making, in the course for the patient. I have also personally directed the plan of care. 57 yrs old female with PMHx HTN/HLD, R breast cancer in remission, Nephrolithiasis comes in for elective surgery with Dr. Sanchez due to L hydronephrosis due to a very large calculus at mid left ureter with chronic obstruction.Patient is SP ureteroscopy with holmium laser lithrotripsy and cystoscopy with pigtail stent . Patient is afebrile since yesterday afternoon.Blood cultures are pending at this time.Patient is on IV cefepime as per ID.
--- NOTE | 2017-08-19 14:50 | CP.PCM.PN ---
Subjective - Date & Time of Evaluation Date of Evaluation: 08/19/17 Time of Evaluation: 13:30 - Subjective Subjective: Infectious Disease Follow Up: August 19, 2018 57 yo [place] female with PMHx of HTN, hyperlipidemia, right breast cancer requiring mastectomy and radiation therapy with one episode of recurrence also treated presented for large calculus at mid left ureter with chronic obstruction. The patient was taken to OR by Dr. Sanchez for laser therapy to remove and break stone. Majority of the stone was removed. A smaller piece in the left kidney at this time. Had urinary retention as well. Developed fevers up to 102.8 F today. Overall she is feeling better but still with tenderness of the left mid back and flank regions. Afebrile the past 24 hours. Objective - Vital Signs/Intake and Output Vital Signs (last 24 hours): Temp Pulse Resp BP Pulse Ox 98.4 F 113 H 18 116/70 97 08/19/17 08:44 08/19/17 06:00 08/19/17 06:00 08/19/17 06:00 08/19/17 06:00 Intake and Output: 08/19/17 08/19/17 06:59 18:59 Intake Total 960 Output Total 2675 Balance -1715 - Medications Medications: Current Medications Acetaminophen (Tylenol 325mg Tab) 650 mg PO Q6H PRN PRN Reason: Fever >100.4 F Last Admin: 08/19/17 07:44 Dose: 650 mg Alprazolam (Xanax) 0.25 mg PO BID [facility] PRN Reason: Protocol Stop: 08/23/17 18:31 Last Admin: 08/19/17 10:23 Dose: 0.25 mg Amlodipine Besylate (Norvasc) 5 mg PO QAM [facility] Last Admin: 08/19/17 10:22 Dose: 5 mg Atorvastatin Calcium (Lipitor) 20 mg PO HS [facility] Last Admin: 08/18/17 22:31 Dose: 20 mg Hyoscyamine (Levsin) 0.125 mg PO Q4H PRN PRN Reason: GI distress Sodium Chloride (Sodium Chloride 0.9%) 1,000 mls @ 100 mls/hr IV .Q10H [facility] Last Admin: 08/19/17 07:44 Dose: 100 mls/hr Cefepime HCl (Maxipime 1gm) 1 gm in 100 mls @ 100 mls/hr IVPB Q12 [facility] PRN Reason: Protocol Last Admin: 08/19/17 10:21 Dose: 100 mls/hr Morphine Sulfate (Morphine) 1 mg IVP Q3 PRN PRN Reason: Pain, moderate (4-7) Last Admin: 08/17/17 21:27 Dose: 1 mg Ondansetron HCl (Zofran Inj) 4 mg IVP Q6H PRN PRN Reason: Nausea/Vomiting Last Admin: 08/16/17 18:00 Dose: 4 mg Pantoprazole Sodium (Protonix Ec Tab) 40 mg PO 0600 [facility] Last Admin: 08/19/17 07:45 Dose: Not Given - Labs Labs: 08/19/17 08:15 08/19/17 08:15 - Constitutional Appears: Non-toxic, No Acute Distress, Chronically Ill - Head Exam Head Exam: ATRAUMATIC, NORMOCEPHALIC - Eye Exam Eye Exam: EOMI, PERRL Pupil Exam: NORMAL ACCOMODATION, PERRL - ENT Exam ENT Exam: Mucous Membranes Moist, Normal External Ear Exam, TM's Normal Bilaterally - Neck Exam Neck Exam: Full ROM, Normal Inspection - Respiratory Exam Respiratory Exam: Clear to Ausculation Bilateral, NORMAL BREATHING PATTERN. absent: Rales, Rhonchi, Wheezes - Cardiovascular Exam Cardiovascular Exam: REGULAR RHYTHM, RRR, +S1, +S2 - GI/Abdominal Exam GI & Abdominal Exam: Soft, Normal Bowel Sounds. absent: Distended, Tenderness Additional comments: left flank pain - Extremities Exam Extremities Exam: Full ROM, Normal Inspection - Neurological Exam Neurological Exam: Alert, Awake, CN II-XII Intact, Oriented x3 - Psychiatric Exam Psychiatric exam: Normal Affect, Normal Mood - Skin Skin Exam: Intact, Normal Color Assessment and Plan - Assessment and Plan (Free Text) Assessment: 57 yo [place] female with Breast Cancer treated with mastectomy and radiation therapy. Laser therapy for very large urethral stone. Patient with fevers up to 102.8 F in the past 24 hours. Start on Cefepime for antibiotic coverage. Odom cultures of blood and urine. Supportive care. Patient with good renal function and no leukocytosis at this time. Afebrile today. Will discuss plan with Dr. Sanchez and Dr. Elias. May consider use of Keflex for outpatient treatment. Case discussed with Dr. Sanchez and Dr. Elias. Thank you for allowing me to participate in the care of the patient, we will follow with you.
[2017-08-19 16:37] VITALS: TEMP 98.1; O2SAT 100
[2017-08-19] MEDS: Morphine 4 mg/ml ISec IVP PRN (21:15)
[2017-08-20] MEDS: Pantoprazole 40 mg EC Tab PO SCH (05:08)
[2017-08-20] MEDS: Sodium Chloride 0.9% 1,000 ML IV SCH (05:08)
[2017-08-20] MEDS ORDERED: Magnesium Citrate Oral SOL (300 ml) PO ONE (06:17)
--- NOTE | 2017-08-20 06:17 | PCM.URO ---
Urology Progress Note - Objective Lab Studies: Reviewed (gu dx: s/p cysto , left ureteroscopy, laser lithotripsy of giant ureteral stone, currently with left stent and stone in residual smaller stone in left kidney. Pt with one febrile event on evening and requesting for discharge home. gu plans: will follow advice of various consultants. gu plans for discharge as soon as pt is cleared . perhaps we can arrange for outpt iv antibiotics. gu plans are for outpt [facility] in [place] and then eventual removal of stent. We will also order an outpt Renal scan , nuclear medicine to see how left kidnye is functioning now that obstruction is relieved. will order magnesium citrate to assist with BM full note to be dictated kiet richey , ) Lab Results Last 24 Hours: Laboratory Results - last 24 hr 08/19/17 08/19/17 08:15 08:15 WBC 10.7 RBC 3.58 Hgb 10.2 L Hct 30.6 L MCV 85.5 MCH 28.5 MCHC 33.3 RDW 13.6 Plt Count 187 MPV 8.9 Gran % 78.3 H Lymph % (Auto) 15.8 L George % (Auto) 5.4 Eos % (Auto) 0.2 L Baso % (Auto) 0.3 Gran # 8.39 H Lymph # (Auto) 1.7 George # (Auto) 0.6 Eos # (Auto) 0.0 Baso # (Auto) 0.03 Sodium 143 Potassium 3.3 L Chloride 106 Carbon Dioxide 22 Anion Gap 18 BUN 5 L Creatinine 0.7 Est GFR ( Amer) > 60 Est GFR (Non-Af Amer) > 60 Random Glucose 149 H Calcium 8.7 Total Bilirubin 0.7 AST 34 ALT 39 Alkaline Phosphatase 67 Total Protein 7.2 Albumin 3.9 Globulin 3.2 Albumin/Globulin Ratio 1.2 Intake & Output: Intake & Output 08/19/17 08/19/17 08/20/17 06:59 18:59 06:59 Intake Total 960 720 Output Total 2675 1200 Balance -1715 480 Intake: Oral 960 720 Output: Urine 2675 1200 Urethral (Michaud) 2675 1200 Other: # Voids Urethral (Michaud) 2 # Bowel Movements 0 2 Vital Signs: Vital Signs - 24 hr 08/19/17 08/19/1708/19/18 07:44 08:44 14:00 Temperature 99.5 F 98.4 F 98.1 F Pulse Rate 109 H Respiratory 18 Rate Blood Pressure 133/80 O2 Sat by Pulse 100 Oximetry
[2017-08-20] MEDS ORDERED: Mineral Oil Enema 135 ml RC ONE (06:18)
[2017-08-20 08:25] VITALS: BP 124/70; PULSE 99; RESP 20
[2017-08-20] MEDS: Cefepime 1gm in NS 100ml 1 GM/100 ML BAG IVPB SCH (10:06)
--- NOTE | 2017-08-20 10:16 | CP.PCM.PN ---
<Emreson Ortega - Last Filed: 08/20/17 10:13> Subjective - Date & Time of Evaluation Date of Evaluation: 08/20/17 Time of Evaluation: 10:13 - Subjective Subjective: Patient seen and examined this AM. No acute events overnight. Patient requesting to go home today. Afebrile over past 48 hours. Blood culture negative. Objective - Vital Signs/Intake and Output Vital Signs (last 24 hours): Temp Pulse Resp BP Pulse Ox 98.1 F 99 H 20 124/70 100 08/19/17 14:00 08/20/17 08:24 08/20/17 08:24 08/20/17 08:24 08/20/17 08:24 Intake and Output: 08/20/17 08/20/17 06:59 18:59 Intake Total 720 Output Total 2800 Balance -2080 - Medications Medications: Current Medications Acetaminophen (Tylenol 325mg Tab) 650 mg PO Q6H PRN PRN Reason: Fever >100.4 F Last Admin: 08/19/17 07:44 Dose: 650 mg Alprazolam (Xanax) 0.25 mg PO BID LAKESHA PRN Reason: Protocol Stop: 08/23/17 18:31 Last Admin: 08/20/17 10:03 Dose: Not Given Amlodipine Besylate (Norvasc) 5 mg PO QAM LAKESHA Last Admin: 08/20/17 10:06 Dose: Not Given Atorvastatin Calcium (Lipitor) 20 mg PO HS [facility] Last Admin: 08/19/17 21:15 Dose: 20 mg Hyoscyamine (Levsin) 0.125 mg PO Q4H PRN PRN Reason: GI distress Sodium Chloride (Sodium Chloride 0.9%) 1,000 mls @ 100 mls/hr IV .Q10H LAKESHA Last Admin: 08/20/17 05:08 Dose: Not Given Cefepime HCl (Maxipime 1gm) 1 gm in 100 mls @ 100 mls/hr IVPB Q12 LAKESHA PRN Reason: Protocol Last Admin: 08/20/17 10:06 Dose: Not Given Morphine Sulfate (Morphine) 1 mg IVP Q3 PRN PRN Reason: Pain, moderate (4-7) Last Admin: 08/19/17 21:15 Dose: 1 mg Ondansetron HCl (Zofran Inj) 4 mg IVP Q6H PRN PRN Reason: Nausea/Vomiting Last Admin: 08/16/17 18:00 Dose: 4 mg Pantoprazole Sodium (Protonix Ec Tab) 40 mg PO 0600 LAKESHA Last Admin: 08/20/17 05:08 Dose: Not Given - Labs Labs: 08/19/17 08:15 08/19/17 08:15 - Constitutional Appears: No Acute Distress - Head Exam Head Exam: ATRAUMATIC, NORMAL INSPECTION, NORMOCEPHALIC - Eye Exam Eye Exam: EOMI, PERRL - ENT Exam ENT Exam: Mucous Membranes Moist - Respiratory Exam Respiratory Exam: Clear to Ausculation Bilateral, NORMAL BREATHING PATTERN. absent: Rhonchi, Wheezes - Cardiovascular Exam Cardiovascular Exam: REGULAR RHYTHM, +S1, +S2 - GI/Abdominal Exam GI & Abdominal Exam: Soft, Tenderness (mild left sided), Normal Bowel Sounds - Extremities Exam Extremities Exam: Full ROM, Normal Inspection. absent: Calf Tenderness - Back Exam Back Exam: CVA tenderness (L) (mild). absent: CVA tenderness (R) - Neurological Exam Neurological Exam: Alert, Awake, Normal Gait, Oriented x3 - Psychiatric Exam Psychiatric exam: Normal Mood - Skin Skin Exam: Dry, Warm Assessment and Plan - Assessment and Plan (Free Text) Assessment: Patient is a 57 year old female who was admitted for intractable nausea and vomiting likely side effect of anesthesia L back pain likely due to bladder spasm secondary to recent ureteroscopy with holmium laser lithrotripsy and cystoscopy with L pigtail stent. Patient has been afebrile for 48 hours iwht negative bld clx. Patient being seen by heme/onc and ID. Urology primary. Plan: Sepsis - resolved Details: - Meeting 2/4 SIRS criteria with suspected source of infection - Afebrile for past 36 hours, mild tachycardia - Recent stenting with Dr. Sanchez - Afebrile past 24 hours, f/u sepsis work up Plan: - Bld clx negative x2 - Urine clx pending - Kefllex outpatient with follow up with Dr. Sanchez outpatient Bladder spasm s/p urethral stenting with Dr. Sanchez - cefepime per ID - Pyridium - Percocet 1q6H - Monitor clinically - patient will follow up outpatient HLD - Lipitor 20mg HTN - Monitor clinically - Stable - Amlodipine DVT: Lovenox GI: protonix dispo: Patient is medically cleared for discharge and is instructed to follow up outpatient with Urology Case and plan discussed with attending <Kim Elias - Last Filed: 08/20/17 11:27> Objective - Vital Signs/Intake and Output Vital Signs (last 24 hours): Temp Pulse Resp BP Pulse Ox 98.1 F 99 H 20 124/70 100 08/19/17 14:00 08/20/17 08:24 08/20/17 08:24 08/20/17 08:24 08/20/17 08:24 Intake and Output: 08/20/17 08/20/17 06:59 18:59 Intake Total 720 Output Total 2800 Balance -2080 - Medications Medications: Current Medications Acetaminophen (Tylenol 325mg Tab) 650 mg PO Q6H PRN PRN Reason: Fever >100.4 F Last Admin: 08/19/17 07:44 Dose: 650 mg Alprazolam (Xanax) 0.25 mg PO BID LAKESHA PRN Reason: Protocol Stop: 08/23/17 18:31 Last Admin: 08/20/17 10:03 Dose: Not Given Amlodipine Besylate (Norvasc) 5 mg PO QAM LAKESHA Last Admin: 08/20/17 10:06 Dose: Not Given Atorvastatin Calcium (Lipitor) 20 mg PO HS LAKESHA Last Admin: 08/19/17 21:15 Dose: 20 mg Hyoscyamine (Levsin) 0.125 mg PO Q4H PRN PRN Reason: GI distress Sodium Chloride (Sodium Chloride 0.9%) 1,000 mls @ 100 mls/hr IV .Q10H LAKESHA Last Admin: 08/20/17 05:08 Dose: Not Given Cefepime HCl (Maxipime 1gm) 1 gm in 100 mls @ 100 mls/hr IVPB Q12 LAKESHA PRN Reason: Protocol Last Admin: 08/20/17 10:06 Dose: Not Given Morphine Sulfate (Morphine) 1 mg IVP Q3 PRN PRN Reason: Pain, moderate (4-7) Last Admin: 08/19/17 21:15 Dose: 1 mg Ondansetron HCl (Zofran Inj) 4 mg IVP Q6H PRN PRN Reason: Nausea/Vomiting Last Admin: 08/16/17 18:00 Dose: 4 mg Pantoprazole Sodium (Protonix Ec Tab) 40 mg PO 0600 LAKESHA Last Admin: 08/20/17 05:08 Dose: Not Given - Labs Labs: 08/19/17 08:15 08/19/17 08:15 Attending/Attestation - Attestation I have personally seen and examined this patient.: Yes I have fully participated in the care of the patient.: Yes I have reviewed all pertinent clinical information, including history, physical exam and plan: Yes Notes (Text): 08/20/17 11:26 Medical record note made by the resident after discussion with my direction and input after the patient was personally seen and examined by me. I have reviewed the chart and agree that the record accurately reflects by personal performance of the history, physical exam, data review, and medical decision-making, in the course for the patient. I have also personally directed the plan of care. 57 yrs old female with PMHx HTN/HLD, R breast cancer in remission, Nephrolithiasis comes in for elective surgery with Dr. Sanchez due to L hydronephrosis due to a very large calculus at mid left ureter with chronic obstruction.Patient is SP ureteroscopy with holmium laser lithrotripsy and cystoscopy with pigtail stent . Patient is afebrile since 48 hors.Blood cultures are negative for any growth.Patient is cleared to be discharged from medical point of view on PO Keflex for 7 days. Management plan was discussed in detail with patient. Education was provided
--- NOTE | 2017-08-20 18:12 | CP.PCM.PN ---
Subjective - Date & Time of Evaluation Date of Evaluation: 08/20/17 Time of Evaluation: 11:30 - Subjective Subjective: Infectious Disease Follow Up: August 20, 2017 57 yo [place] female with PMHx of HTN, hyperlipidemia, right breast cancer requiring mastectomy and radiation therapy with one episode of recurrence also treated presented for large calculus at mid left ureter with chronic obstruction. The patient was taken to OR by Dr. Sanchez for laser therapy to remove and break stone. Majority of the stone was removed. A smaller piece in the left kidney at this time. Had urinary retention as well. Developed fevers up to 102.8 F today. Overall she is feeling better but still with tenderness of the left mid back and flank regions. Afebrile the past 48 hours. Patient wants to go home today. Objective - Vital Signs/Intake and Output Vital Signs (last 24 hours): Temp Pulse Resp BP Pulse Ox 98.1 F 99 H 20 124/70 100 08/19/17 14:00 08/20/17 08:24 08/20/17 08:24 08/20/17 08:24 08/20/17 08:24 Intake and Output: 08/20/17 08/20/17 06:59 18:59 Intake Total 720 Output Total 2800 Balance -2080 - Labs Labs: 08/19/17 08:15 08/19/17 08:15 - Constitutional Appears: Non-toxic, No Acute Distress, Chronically Ill - Head Exam Head Exam: ATRAUMATIC, NORMOCEPHALIC - Eye Exam Eye Exam: EOMI, PERRL Pupil Exam: NORMAL ACCOMODATION, PERRL - ENT Exam ENT Exam: Mucous Membranes Moist, Normal External Ear Exam, TM's Normal Bilaterally - Neck Exam Neck Exam: Full ROM, Normal Inspection - Respiratory Exam Respiratory Exam: Clear to Ausculation Bilateral, NORMAL BREATHING PATTERN. absent: Rales, Rhonchi, Wheezes - Cardiovascular Exam Cardiovascular Exam: REGULAR RHYTHM, RRR, +S1, +S2 - GI/Abdominal Exam GI & Abdominal Exam: Soft, Tenderness, Normal Bowel Sounds. absent: Distended Additional comments: left flank pain. - Extremities Exam Extremities Exam: Full ROM, Normal Inspection - Neurological Exam Neurological Exam: Alert, Awake, CN II-XII Intact, Oriented x3 - Psychiatric Exam Psychiatric exam: Normal Affect, Normal Mood - Skin Skin Exam: Intact, Normal Color Assessment and Plan - Assessment and Plan (Free Text) Assessment: 57 yo [place] female with Breast Cancer treated with mastectomy and radiation therapy. Laser therapy for very large urethral stone. Patient with fevers up to 102.8 F. Started on Cefepime for antibiotic coverage. Odom cultures of blood and urine. Supportive care. Patient with good renal function and no leukocytosis at this time. Afebrile today and actually for the past 48 hours. May consider use of Keflex for outpatient treatment. Cultures negative (blood and urine) to date. Case discussed with Dr. Sanchez and Dr. Elias. Patient wants to go home. Thank you for allowing me to participate in the care of the patient, we will follow with you.
--- NOTE | 2017-08-20 21:38 | PN ---
DATE: ONCOLOGY PROGRESS NOTE: LOCATION: Patient is in room 566, bed 1. SUBJECTIVE: The patient is being discharged today. She has been afebrile for the last 24 hours. Blood cultures have been negative. 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 During the workup, was found to have increasing and worsening left hydronephrosis due to a large stone in the left mid ureter for which she was referred to Dr. Sanchez for attempting to do a lithotripsy and placing a stent in the left ureter which was done. Right after the procedure was done, the patient has to be admitted because of severe pain, fevers, chills. The patient was monitored for the last 48 hours, has been gradually improving. Pain has improved significantly, as initially the pain was 10/10, has now regressed dramatically. The patient has been urinating. Urine is dark in color. No more blood clots. The patient's urine has been collected and filtered to check for urinary gravel for the stones. It appears on the x-rays, as per my discussion with Dr. Sanchez, that part of the stone may have actually moved upward while being manipulated and that may have to be addressed later on down the road. As for now, if it is not causing any symptoms, she is going to be monitored as an outpatient. The patient also has a history of abnormal findings on the PET CT scan for which she needs an MRI of the dorsal spine and that has not yet been done as the stone and the left hydronephrosis . Objectively, the patient is feeling better, in no acute distress. No fevers, no chills. No nausea, no vomiting. Appetite is improved. Overall the patient feels better. PHYSICAL EXAMINATION: GENERAL: Reveals the patient to be awake, alert and oriented, in no acute distress. VITAL SIGNS: T-max is 98.4, pulse is 99, respirations 20, blood pressure is 124/70, pulse ox is 100% on room air. Stable. HEENT: Head is normocephalic, atraumatic. Conjunctivae pale. Sclerae is anicteric. Pupils are equally reactive to light and accommodation. Examination of the oropharynx reveals no oropharyngeal lesions. CARDIOVASCULAR: Reveals PMI to be in the fifth intercostal space, inside the midclavicular line. S1 and S2 are normal. No gallop or murmur is heard. ABDOMEN: Soft, nontender. Bowel sounds are present. The patient has vague left quadrant tenderness. EXTREMITIES: Reveal no cyanosis, clubbing or edema, on examination of both lower extremities. BACK: Reveals no CVA tenderness. Spine is okay. NEUROLOGIC: Reveals higher functions to be normal. No significant deficits are noted. SKIN: Turgor is normal. No skin lesions are noted. ASSESSMENT, NOTES AND PLAN: This is a 57-year-old female with history of stage IV carcinoma of the breast status post chemotherapy, status post one year of Herceptin, currently in the hospital after attempted laser therapy for significantly large ureteric stone in the left side, part of which has been removed. The patient had some stent in the left side, part of the stone is still there which has to be monitored and will be followed by Dr. Sanchez as an outpatient. The patient has a pigtail stent on the left side. Although the patient will be monitored as an outpatient, she may need additional testing with the MRI of the spine to ascertain the abnormalities picked up on the PET CT appeared to be resolved at this point in time. The patient is being cleared for discharge by Urology. Bladder spasm appears to be improved. The patient is going to continue her medications at this point in time, on p.o. Keflex for 7 days, and she will be followed up in our office as well as Dr. Sanchez. exam instructions have been given to the patient. The patient's potassium is low which will be replaced as well. Davi Mary MD
--- NOTE | 2017-08-22 01:12 | PN ---
DATE: 08/18/2017 SUBJECTIVE: See the previous dictated notes from 08/16/2017 to 08/18/2017. The patient has now actually a febrile episode one time. See below. The patient feels well. She wants to know about discharge. PHYSICAL EXAMINATION: GENERAL: Well nourished female, in no apparent distress. VITAL SIGNS: Noted. ABDOMEN: Relatively soft. PELVIC: Deferred. DIAGNOSES: Urolithiasis, hematuria, now she is febrile. Status post a cystourethroscopy uncomplicated except that there was a tremendously large stone and it required a lot of manipulation and we had used antibiotic prophylaxis, but the patient is still having ongoing pain and discomfort and having fever. We are going to monitor closely slowly and not make major changes, but the patient is to require to stay in the hospital until she is feeling better and stronger. Balwinder Sanchez MD
--- NOTE | 2017-08-22 01:26 | PN ---
DATE: 08/20/2017 I received a phone call this morning from the patient requesting discharge home and so, I spoke to medical doctor who was interested that the patient actually stay a little bit, but the patient states she really wants to be discharged. I discussed with her the difficult scenario. After discussing all the different option with the patient, we are now discharging home and then further plans will follow. Balwinder Sanchez MD
--- NOTE | 2017-08-22 01:31 | PN ---
DATE: IMMEDIATE POSTOPERATIVE NOTE See the preoperative and the operative report. The patient is now going to be in a recovery room, stable vital signs noted. Status post stent for diagnosis for urolithiasis. The plan is observation and then admission and then further plans will follow. Balwinder Sanchez MD
--- NOTE | 2017-08-22 02:03 | PN ---
DATE: SUBJECTIVE: See the note from 08/16/2017. The patient is having some general abdominal pain within normal limits postop. See the operative note, we put a stent in yesterday. Vital signs are within normal limits and no fever. PHYSICAL EXAMINATION: Essentially unremarkable. DIAGNOSIS: Severe pain. PLAN: As follows: The patient is having severe pain postop. A little more than it would be expected, I am also little worried about sepsis given the fact that see the operating findings such as obstructing kidney. The plan for now is as follows: 1. Antibiotics. 2. Analgesics because the patient is requiring tremendous amount of pain medicine. 3. We need to rule out sepsis. 4. We will await medical oncology and various consults, but in the meantime, the patient is to stay in the hospital given the fact that she is having so much pain and then the other is we will plan for further imaging. Balwinder Sanchez MD
--- NOTE | 2017-08-22 02:34 | PN ---
DATE: 08/19/2017 See note from 08/16/2017. SUBJECTIVE: The patient is now resting comfortably. No . See below plan. PAST MEDICAL AND SURGICAL HISTORY: No other changes. PHYSICAL EXAMINATION: GENERAL: Well-nourished female, in no apparent distress.. VITAL SIGNS: Actually within normal limits. No further fevers. Last fever was last night. DIAGNOSES: Urolithiasis, hematuria, hydronephrosis. PLAN: The plan is as follows, at some point, we are going to check the left kidney, for function with the renal scan. The patient is enthusiastic as soon as she is allowed to be discharged. We will talk to Dr. Simon, the Infectious Disease Doctor and Dr. Mary, her Medical Doctor and then make further recommendations on plans, but most likely we will be able to discharge her by 08/20. Balwinder Sanchez MD
--- NOTE | 2017-08-22 07:14 | HP ---
UROLOGY ADMISSION HISTORY AND PHYSICAL REASON FOR ADMISSION: Treatment of a kidney stone. HISTORY OF PRESENT ILLNESS: Ms. Kumar is a very pleasant lady who has underlying metastatic breast cancer, treated by Dr. Mary. From a Urology stand point, we are admitting the patient now. She has a known stone. She has had this stone quite some time and she is now coming in to treatment. It is about a 1.5-cm stone in the ureter. She is being admitted. I spoke to the patient that given the size of the stone, there is going to be a staged procedure. If we can get a stent in today, ureteroscope laser, but definitely, with the size of the stone, also the massive amount of left hydronephrosis in the left kidney, definitely it does not look like it functions alright. In fact, at some point, we are going to plan for a renal scan, want to relieve the obstruction, but not yet. PAST MEDICAL AND SURGICAL HISTORY: As listed. Otherwise, unremarkable. SOCIAL HISTORY: Essentially unremarkable. REVIEW OF SYSTEMS: As listed above, noncontributory. No weight loss, chest pain, shortness of breath or the like. MEDICATIONS: See chart. SOCIAL HISTORY: Unremarkable. PHYSICAL EXAMINATION: GENERAL: A well-developed, well-nourished female, in no apparent distress. She is younger than her stated age. VITAL SIGNS: Within normal limits and listed in the chart. LUNGS: Clear. HEART: Normal S1, S2. ABDOMEN: Overall soft. Nontender. No real flank masses appreciated. PELVIC: Reveals normal external genitalia, no pelvic or rectal masses. DIAGNOSES: Urolithiasis, hematuria, flank pain intermittently, metastatic breast cancer. ASSESSMENT AND PLAN: This is a very pleasant lady. It looks like the left kidney does not work as well as the right. The parenchyma is a little weakened. We can see all other images that are on the chart. At this point, we are going to do our best effort to rip the body of the stone. The plan at this time is to bring the patient to the operating room, antibiotic prophylaxis, and then further plans. I explained to the patient the overall plan is to make sure that left kidney is working well, but first we got relieve the obstruction. I guess, she has been waiting for her cancer issues to be somewhat resolved. We are going to make today and then most likely the rest of the treatment will be in the outpatient in the stone center. I also discussed with the patient the risk of sepsis given the fact that she is having a longstanding obstructed kidney. Balwinder Sanchez MD
--- NOTE | 2017-08-22 10:27 | OP ---
PROCEDURE DATE: 08/16/2017 UROLOGY OPERATIVE REPORT PREOPERATIVE DIAGNOSES: Urolithiasis; hematuria; flank pain, intermittent pain. POSTOPERATIVE DIAGNOSES: Urolithiasis, hematuria; flank pain, intermittent pain. PROCEDURES: Examination under anesthesia, cystoscopy, left ureteral dilation, left ureteroscopy, left laser lithotripsy, and insertion of left double J-stent. COMPLICATIONS: None. BLOOD LOSS: Less than 25 mL. FINDINGS: Are as follows: 1. The bladder mucosa is within normal limits. 2. There is a gigantic stone between 1.5 to 2 cm in the left upper ureter in the beginning of the case. 3. At the termination procedure, that stone is completely gone. There is nothing in the ureter, but most likely some of it is up in the kidney. FINDINGS: Are as follows: 1. The bladder mucosa is within relatively normal limits. 2. There is a lot of hydronephrosis. 3. There is an obstructing stone, tremendously large stone to the point that I could not get anything passed on until we lasered and then subsequently, we got the stent in place and there is nothing left in the ureter. INDICATIONS: See the history and physical the patient is here now for the above procedure. DESCRIPTION OF PROCEDURE: After discussing the options with the patient, we discussed risks, benefits, treatment and alternatives. At this point, we just wanted to place a stent except we could not even . I discussed with the patient that I will take a couple of staged procedures. The patient has been much medically and therefore, I told we will do as much as we can at one time. the patient was given antibiotic prophylaxis prior to beginning the procedure. Time-outs were called. We confirmed the patient positioning. The patient was in the lithotomy position. We introduced the cystoscope via urethra. The ureter was identified. Retrograde pyelogram was performed. Senior Business Analyst film shows a gigantic stone. It was between 1.5 cm to 2 cm within the ureter and upper ureter. At this point, we put a wire up to the kidney, but we could not get it. It just kept getting struck stone level. We tried carefully manipulating. We used the open-ended wire technique, we used the nothing would go in. So, at this point, I was very concerned for sepsis. So, what we did is we kept the wire to the level of the stone and the thinking was that if we could not get a wire in, the patient is going to require percutaneous nephrostolithotomy as a relatively emergency procedure. Specifically, I was concerned about sepsis once we started manipulating the system. So, at this point, with the wire up to the kidney, I then went with the ureteroscope adjacent, now with a second wire through the ureteroscope and going through dilating basically the distal ureter, but then going more proximally, right at the stone level, I could see a little narrowing area and I was able to slip the wire pass that stone and go up to the kidney. We confirmed our positioning. Once we did this, we now had a safety wire. So, I took the scope back out, left the safety wire in, went back in again, and then, began lasering the stone. I still felt at the beginning, it was so impacted and so gigantic that even with a wire up to the kidney safety wire that would not been able to get a double J stent in, but I did feel that we could work safely on this stone where we provided holmium YAG laser, we started with about 1.8 joules in a frequency of about 3 and just kept working diligently and carefully until there was nothing in the ureter. Some of the stone fragments probably fragmented up to the ureter, up to the kidney, difficult to see this with the contrast in the system, there is a lot of hydronephrosis, but there is definitely nothing in the ureter. I took multiple images and is really nothing to see except on directly looking at it. At this point, we now, therefore, a wide open we put a double-J stent in. The double-J stent was placed to the kidney, to the bladder, we confirmed positioning. The patient tolerated the procedure well without complications. ADDENDUM: The plan will be admission, antibiotics and then further plans will follow. The patient already received the antibiotics; so, we will give extra. Balwinder Sanchez MD
--- NOTE | 2017-08-22 10:31 | PN ---
DATE: 08/16/2017 IMMEDIATE POSTOPERATIVE NOTE The patient has a double-J stent in good location. The patient tolerated without complications. Balwinder Sanchez MD
--- NOTE | 2017-08-22 11:32 | DS ---
UROLOGY DISCHARGE NOTE HISTORY OF PRESENT ILLNESS: See history and physical, operative report, multiple progress notes. At this point, the patient has requested discharge with sending home. Further plans will follow depending what we find clinically. Further plans to follow. I discussed with her she needs followup. She has a stent. She understands fully well that she has a stent. We are going to bring her out to the [facility]. Then, further plans will follow. Balwinder Sanchez MD
--- NOTE | 2017-08-23 12:18 | US ---
PROCEDURE: Ultrasound of the Kidneys HISTORY: left cva pain COMPARISON: None available. TECHNIQUE: Sonogram of the kidneys. FINDINGS: RIGHT KIDNEY: Measures: 10.5 cm. Normal in size, contour and echogenicity. No mass or hydronephrosis. Multiple small calculi. Mid pole, 2 calculi measuring 3 mm and a 7 mm calculus. Upper pole, 3 mm calculus. LEFT KIDNEY: Measures: 10.8 cm. Normal in size, contour and echogenicity. Mild hydronephrosis. Ureteral stent noted. Upper pole calculus, 18 mm. OTHER FINDINGS: None. IMPRESSION: Mild left hydronephrosis. Left ureteral stent. Bilateral renal calculi as described.
== END 2017-08-20 13:51 | disposition home or self-care (01) | DRG 669 ==
LOC: SDS 10:33 → 5RNO 19:20
PROVIDERS: ADMIT Urology; ATTEND Urology
PROC: 0TC78ZZ Extirpation of Matter from Left Ureter, Via Natural or Artificial Opening Endoscopic (ICD-10-PCS; principal; 2017-08-16 13:00)
PROC: 0T778DZ Dilation of Left Ureter with Intraluminal Device, Via Natural or Artificial Opening Endoscopic (ICD-10-PCS; 2017-08-16 13:00)
DX: N13.2 Hydronephrosis with renal and ureteral calculous obstruction (principal); R33.9 Retention of urine, unspecified; R31.9 Hematuria, unspecified; N32.89 Other specified disorders of bladder; R50.9 Fever, unspecified; E78.5 Hyperlipidemia, unspecified; I10 Essential (primary) hypertension; M10.9 Gout, unspecified; F41.9 Anxiety disorder, unspecified; Z85.3 Personal history of malignant neoplasm of breast; Z90.11 Acquired absence of right breast and nipple; Z92.3 Personal history of irradiation

== ENCOUNTER 2018-06-29 08:32 | Day surgery (SDC) | payer BC ==
[2018-06-21 07:54] VITALS: BMI 21.9
[2018-06-29 10:15] LABS: BASO # 0.03 K/mm3 (0.0-2.0); BASO % 0.7 % (0.0-3.0); EOS % 0.9 % (1.5-5.0); HEMOGLOBIN 13.6 g/dL (12.0-16.0); LYMPH # 1.6 (1.2-3.4); LYMPH % 37.4 % (22.0-35.0); MEAN CELL VOLUME 90.5 fl (80.0-105.0); MEAN CORPUSCULAR HGB CONC 33.1 g/dl (31.0-37.0); MEAN PLATELET VOLUME 9.2 fl (7.0-11.0); MONO # 0.3 (0.1-0.6); MONO % 7.2 % (1.0-6.0); RBC 4.54 10^6/uL (3.5-6.1); RED CELL DISTRIBUTION WIDTH 12.9 % (11.5-14.5); WHITE BLOOD COUNT 4.3 10^3/uL (4.5-11.0)
[2018-06-29 10:24] LABS: BLOOD UREA NITROGEN 13 mg/dL (7-21); CALCIUM 9.6 mg/dL (8.4-10.5); GFR NON-AFRICAN AMERICAN > 60
[2018-06-29 10:25] LABS: INR 0.97; PARTIAL THROMBOPLASTIN TIME 37.3 Seconds (26.9-38.3)
[2018-06-29] MEDS ORDERED: Lidocaine PF 2% (5 ml) Inj (For Cardiac Arrhy) ONE (13:35)
[2018-06-29] MEDS ORDERED: Midazolam 2 MG/2 ML VIAL ONE (13:39)
[2018-06-29] MEDS ORDERED: Oxycodone/Acetaminophen 5/325 mg Tab PO PRN (14:03)
[2018-06-29 14:14] VITALS: TEMP 98
[2018-06-29] MEDS ORDERED: Sodium Chloride 0.45% 1,000 ML IV SCH (14:15)
[2018-06-29 14:22] VITALS: O2SAT 97
[2018-06-29 15:20] VITALS: RESP 18
[2018-06-29 15:24] VITALS: BP 110/70; PULSE 86
--- NOTE | 2018-06-29 19:44 | VASCULAR ---
PROCEDURE: Removal of tunneled left internal jugular venous access port. CLINICAL HISTORY: Metastatic breast carcinoma. Completed chemotherapy. Remove port. PHYSICIAN(S): Jorge Luis Rios M.D. TECHNIQUE: The relative risks and indications of the procedure were explained to the patient and consent obtained. The patient was placed supine on the arteriogram table and the left neck and chest prepped and draped usual sterile fashion. Conscious sedation and monitoring were provided throughout the procedure by a nurse. Antibiotics were given prior to the procedure. 1% Xylocaine was used to anesthetize the skin and soft tissues at the port. A 4 cm incision was made. The port was bluntly dissected and removed. The catheter was removed under fluoroscopic guidance. No retained catheter fragments were seen. The pocket was lavaged with normal saline. The pocket was closed in 2 layers. The patient tolerated the procedure well. IMPRESSION: 1. Removal of tunneled left internal jugular venous access port.
== END 2018-06-29 15:45 | disposition home or self-care (01) ==
LOC: SDS 08:32 → SDSVAS 08:32
PROVIDERS: ATTEND Radiology Vascular & Interventional Radiology
DX: Z45.2 Encounter for adjustment and management of vascular access device (principal); C50.919 Malignant neoplasm of unspecified site of unspecified female breast; I10 Essential (primary) hypertension; E78.5 Hyperlipidemia, unspecified; F41.9 Anxiety disorder, unspecified; Z90.12 Acquired absence of left breast and nipple
CPT/HCPCS: 36415; 36590; 80048; 85025; 85610; 85730; 99152; J1644; J2250; J2405; J3010; J7030